=== PATIENT | female | born 1950 | race Caucasian/White ===

== ENCOUNTER 2018-02-09 07:21 | Inpatient (IN) ==
--- NOTE | 2018-02-08 08:34 | Discharge Summary ---
<Naomi Mcleod E - Last Filed: 02/08/18 08:31> Date of Encounter: 02/08/18 - Discharge Diagnosis (1) Status post total hip replacement, right Priority: Primary Status: Acute (2) Arthritis of right hip Priority: Primary Status: Chronic (3) Atrial fibrillation Priority: Secondary Status: Chronic Qualifiers: Atrial fibrillation type: unspecified Qualified Code(s): I48.91 - Unspecified atrial fibrillation (4) senior care current use of anticoagulant Priority: Secondary Status: Chronic (5) HLD (hyperlipidemia) Priority: Secondary Status: Chronic Qualifiers: Hyperlipidemia type: unspecified Qualified Code(s): E78.5 - Hyperlipidemia , unspecified (6) HTN (hypertension) Priority: Secondary Status: Chronic Qualifiers: Hypertension type: unspecified Qualified Code(s): I10 - Essential (primary ) hypertension (7) Asthma Priority: Secondary Status: Chronic Qualifiers: Asthma severity: unspecified severity Asthma persistence: unspecified Asthma complication type: unspecified Qualified Code(s): J45.909 - Unspecified asthma, uncomplicated (8) H/O mechanical aortic valve replacement Priority: Secondary Status: Chronic (9) Obesity Priority: Secondary Status: Chronic Qualifiers: Obesity type: unspecified obesity type Obesity classification: unspecified obesity classification Serious obesity comorbidity presence: unspecified whether serious comorbidity present Qualified Code(s): E66.9 - Obesity, unspecified - Hospital Course Hospital course: Ms. Pena is a 67 year old female - Time Spent with Patient Total time spent providing and/or coordinating discharge services: - Discharge Medications Home Medications: OxyCODONE Immed Rel [Roxicodone 5 MG] 5 mg PO Q6HR PRN 7 Days #28 tablet [Rx] Amiodarone [Cordarone] 200 mg PO DAILY 02/09/18 [History] Atorvastatin [Lipitor] 10 mg PO HS 02/09/18 [History] Citalopram Hydrobromide [Citalopram HBr] 20 mg PO DAILY 02/09/18 [History] Enoxaparin [Lovenox] 40 mg SQ DAILY 02/09/18 [History] Furosemide [Lasix] 40 mg PO BID 02/09/18 [History] HYDROcodone/Acet 5/325 mg [[place] 5-325 mg] 1 tab PO Q6H PRN 02/09/18 [History] Isosorbide MONOnitrate (24 HR) [Imdur] 30 mg PO DAILY 02/09/18 [History] Metoprolol Tartrate 50 mg PO BID 02/09/18 [History] Potassium Chloride [K-Tab ER] 10 meq PO DAILY 02/09/18 [History] Verapamil ER (24 HR) [Calan SR] 240 mg PO DAILY 02/09/18 [History] Warfarin [Coumadin] 1.5 mg PO 1800 02/09/18 [History] Allergies/Adverse Reactions: 3 Allergy/AdvReac Type Severity Reaction Status Date / Time No Known Allergies Allergy Verified 02/09/18 07:49 Primary care physician: Shannon Posadas - Patient Status Disposition: Transfer Inpatient Rehab Fac Condition: Good - Discharge Instructions Instructions: Total Hip Replacement (DC) Follow Up With: Shannon Posadas [Primary Care Provider] - <Darrius Mcgarry - Last Filed: 02/13/18 08:27> Orders not resulted at time of discharge: Pending orders 02/09/18 01:00 XR hip complete RT [XR] Routine Hemoglobin and Hematocrit [HEME] Routine Date of Encounter: 02/13/18 Time of Encounter: 08:27 - Discharge Diagnosis (1) Malunion of fracture of proximal femur Priority: Secondary Status: Chronic Qualifiers: Fracture type: closed Laterality: left Qualified Code(s): S72.002P - Fracture of unspecified part of neck of left femur, subsequent encounter for closed fracture with malunion (2) Obesity (BMI 35.0-39.9 without comorbidity) Priority: Secondary Status: Chronic (3) Status post total hip replacement, right Priority: Primary Status: Acute (4) Arthritis of right hip Priority: Primary Status: Chronic (5) Atrial fibrillation Priority: Secondary Status: Chronic Qualifiers: Atrial fibrillation type: unspecified Qualified Code(s): I48.91 - Unspecified atrial fibrillation (6) senior care current use of anticoagulant Priority: Secondary Status: Chronic (7) HLD (hyperlipidemia) Priority: Secondary Status: Chronic Qualifiers: Hyperlipidemia type: unspecified Qualified Code(s): E78.5 - Hyperlipidemia , unspecified (8) HTN (hypertension) Priority: Secondary Status: Chronic Qualifiers: Hypertension type: unspecified Qualified Code(s): I10 - Essential (primary ) hypertension (9) Asthma Priority: Secondary Status: Chronic Qualifiers: Asthma severity: unspecified severity Asthma persistence: unspecified Asthma complication type: unspecified Qualified Code(s): J45.909 - Unspecified asthma, uncomplicated (10) H/O mechanical aortic valve replacement Priority: Secondary Status: Chronic (11) Anemia requiring transfusions Priority: Primary Status: Acute (12) Symptomatic hypotension Priority: Primary Status: Resolved (13) Acute kidney injury Priority: Primary Status: Resolved - Hospital Course Hospital course: Ms. Pena is a 67 year old female Patient status post total hip replacement. Patient with acute blood loss anemia and acute kidney injury. Patient received transfusion was evaluated by hospitalist on the hospital. They received antibiotics and physical therapy and were discharged in stable condition. There will follow-up in the office in 2 weeks. - Time Spent with Patient Total time spent providing and/or coordinating discharge services: Primary care physician: Shannon Posadas - Patient Status Functional capacity at discharge: uses cane/walker Overall status at discharge: patient is progressing back to baseline
--- NOTE | 2018-02-08 08:36 | Physician Discharge Referral ---
Home Health/Hosp Referral Info Transfer to: Home Health Attending Provider: Dr Mcgarry - Diagnosis (1) Status post total hip replacement, right Priority: Primary Status: Acute (2) Arthritis of right hip Priority: Primary Status: Chronic (3) Atrial fibrillation Priority: Secondary Status: Chronic (4) assisted current use of anticoagulant Priority: Secondary Status: Chronic (5) HLD (hyperlipidemia) Priority: Secondary Status: Chronic (6) HTN (hypertension) Priority: Secondary Status: Chronic (7) Asthma Priority: Secondary Status: Chronic (8) H/O mechanical aortic valve replacement Priority: Secondary Status: Chronic (9) Obesity Priority: Secondary Status: Chronic - Respiratory Orders Smoking Cessation: Smoking cessation has been advised. For more information, call the [employer] Tobacco Quit Line at 1-395-FNGG-NOW. - Dressing/Wound Care Site: right hip Type of Dressing/Treatments w/Frequency: Opsite placed. Keep dressing intact until first follow up appointment. If greater than 50% saturated, notify office, remove dressing and place appropriate dressing back in place. Leave Zipline intact. Opsite dressing is water resistant, not water-proof. OK to shower, but do not get dressing wet. - Diet/Nutrition Diet/Nutrition Orders: Regular - Activity Activity Orders: Up ad gilbert, Ambulate, Chair, Walker Activity: List: Total Hip replacement Precautions Apply cold therapy 3-6x/day for 20 minutes at a time. Encourage ambulation throughout the day and incentive spirometer 10x/hour. Elevate affected extremity as tolerated. Brace: Wear hip abduction pillow when laying/sleeping - Services Needed Following services are medically necessary services: Nursing, Home Health Aide, Physical Therapy, Occupational Therapy - Transfer Medications Prescriptions: OxyCODONE Immed Rel [Roxicodone 5 MG] 5 mg PO Q6HR PRN 7 Days #28 tablet PRN Reason: Severe Pain Home Medications: OxyCODONE Immed Rel [Roxicodone 5 MG] 5 mg PO Q6HR PRN 7 Days #28 tablet [Rx] Allergies/Adverse Reactions: 3 Allergy/AdvReac Type Severity Reaction Status Date / Time No Known Allergies Allergy Verified 01/27/18 14:42 Certification: Further, I certify that my clinical findings support that this patient is homebound (i.e. absences from home require considerable and taxing effort and are for medical reasons or zoroastrian services or infrequently or short duration when for other reasons) because: Homebound Reason: Post-surgery restriction and or conditions limit ability to leave home Attestation: My signature below is to certify that this patient is under my care and that I, or nurse practitioner, or a physician elementary assistant principal working with me, has a face-to- face encounter with this patient.
--- NOTE | 2018-02-09 07:31 | Anesthesia Evaluation PreOp ---
Date of Encounter: 02/09/18 Time of Encounter: 07:26 - Past History Planned Operation: L-Total Hip ARthroplasty Cardiac History: CHF (maintained on Lasix), HTN (mainatained on Imdur, Metoprolol, Lisinopril), Hyperlipidemia (maintained on Atorvastatin), Arrhythmia (Chronic AFib since 06/2017 w/ recent Hx RVR maintained on Metoprolol , Amiodarone, Verapamil and s/p unsuccessful Cardioversion 10/2017. Anticoagulated on Coumadin. Lovenox Bridge BID x 5 days. Last dose 02/08/2018 @ 1800), Cardiac Surgery (Aortic Valve replacement w/ Aortic root & proximal root replacement[Prosthetic Heart Valve] 2007), Other (Stress test 05/2017 WNL. 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: Other (Anxiety/Depression maintained on Citalopram,) Other Medical History: Renal (CRI) Anesthesia History: No Prior Anesthetic Complications, Past Anesthesia (B-TKR 2004, R-Total Hip 2012, KAT, Aortic VAlve/Mechanical Valve replacement 2007, Nikki 1996) Alcohol Use: unknown Drug use: unknown Medications and Allergies OxyCODONE Immed Rel [Roxicodone 5 MG] 5 mg PO Q6HR PRN 7 Days #28 tablet [Rx] Amiodarone [Cordarone] 200 mg PO DAILY 02/09/18 [History] Atorvastatin [Lipitor] 10 mg PO HS 02/09/18 [History] Citalopram Hydrobromide [Citalopram HBr] 20 mg PO DAILY 02/09/18 [History] Enoxaparin [Lovenox] 40 mg SQ DAILY 02/09/18 [History] Furosemide [Lasix] 40 mg PO BID 02/09/18 [History] HYDROcodone/Acet 5/325 mg [[place] 5-325 mg] 1 tab PO Q6H PRN 02/09/18 [History] Isosorbide MONOnitrate (24 HR) [Imdur] 30 mg PO DAILY 02/09/18 [History] Metoprolol Tartrate 50 mg PO BID 02/09/18 [History] Potassium Chloride [K-Tab ER] 10 meq PO DAILY 02/09/18 [History] Verapamil ER (24 HR) [Calan SR] 240 mg PO DAILY 02/09/18 [History] Warfarin [Coumadin] 1.5 mg PO 1800 02/09/18 [History] 3 Allergy/AdvReac Type Severity Reaction Status Date / Time No Known Allergies Allergy Verified 02/09/18 07:49 - Meds/Allergy Pre-op Review Medications Reviewed: Yes Allergies Reviewed: Yes Beta Blockers on Current Med List: Yes (Metoprolol,) If Beta Blockers taken, Date/Time (Last Dose taken): 02/09/2018 @ 0530 Anesthesia Results - Labs Laboratory Tests 01/27/18 01/27/18 01/27/18 15:03 15:03 15:03 WBC 7.8 Hgb 14.6 Hct 44.5 Plt Count 221 PT 38.5 H INR 3.5 APTT 43.9 H Sodium 136 Potassium 5.0 Chloride 105 Carbon Dioxide 26 BUN 28 H Creatinine 1.13 Est GFR (Non-Af Amer) 48 L - Imaging EKG: image reviewed (79bpm AFib) Anesthesia Exam O2 Sat Height 1.8 m Weight 101.605 kg O2 Sat O2 Sat - HEENT Pupil (Motor): Pupils equal, EOMI Mallampati: III Teeth: Edentulous Oral Opening: Greater than 3 - REGISTERED SALES ASSISTANT LOC: Oriented REGISTERED SALES ASSISTANT Motor: Normal RUE, Normal LUE, Normal RLE, Normal LLE, Normal Face REGISTERED SALES ASSISTANT Sensory: Normal: RUE, LUE, RLE, LLE, Face - Cardiac Rhythm: Irregular Murmur: Systolic JVD: No - Pulmonary Breath Sounds: bilateral Clear Respiratory Effort: Symmetrical Anesthesia Assess/Plan ASA Score: 3 (Obesity, ASthma, Chronic AFib, HTN, Chol, Anxiety/depression) Modified [place] Scale for Level of Consciousness: Cooperative, oriented, and tranquil Anesthetic Plan: Regional Autologous Blood: Yes Monitoring Plan: Standard Monitors Recovery Plan: PACU Anes Supervising Prov Stmt: Pt seen/evaluated, R&B Discussed, questions answered and consent obtained. Eden Hernandez MD
[2018-02-09] MEDS ORDERED: Ethanol\\Acetic Acid\\Na Ace\\Ben 1,000 ML IRRIG.SOLN IR ONE (07:34)
[2018-02-09] MEDS ORDERED: CeFAZolin Syr 2,000MG/20 ML 2,000 MG/20 ML SYRINGE IVPB ONE (07:42)
[2018-02-09] MEDS ORDERED: Ringers Solution, Lactated 1,000 ML IVC SCH ×2 (07:45→13:05)
[2018-02-09] MEDS ORDERED: Albuterol 2.5 MG/3 ML NEBULIZER IH ONE (07:53)
[2018-02-09] MEDS ORDERED: Albuterol 2.5 MG/3 ML NEBULIZER ONE (07:54)
--- NOTE | 2018-02-09 08:08 | History & Physical Report ---
Date of Encounter: 02/09/18 Time of Encounter: 08:07 24 Hour HP Update - Instructions Instructions: If the History and Physical is less than 30 days old and was completed prior to A.M. admission and or procedure and has NOT been updated on calendar day of procedure please complete this update prior to performing procedure. - Update Patient reports changes in Medical Condition: No Changes in examination, assessment, or condition: No Changes in Medication: No Preop tests/diagnostics Reviewed: Yes Surgery Remains Indicated: Yes Consent for Planned Operative Procedure(s) Verified: Yes - Pre-Operative Checklist Preoperative Checklist Indicated: No Prophylactic Antibiotic Ordered: Yes Is VTE Prophylaxis Indicated?: Yes
[2018-02-09] MEDS ORDERED: *HR* Propofol 200 MG/20 ML VIAL IVP ONE (08:14)
[2018-02-09] MEDS ORDERED: Ondansetron 4 MG/2 ML VIAL IVP PRN ×2 (08:14→13:05)
[2018-02-09] MEDS ORDERED: *HR* Succinylcholine 200 MG/10 ML VIAL IVP ONE (08:14)
[2018-02-09] MEDS ORDERED: Dexamethasone 4 MG/ML VIAL ONE (08:14)
[2018-02-09] MEDS ORDERED: Naloxone 0.4 MG/ML INJ IVP PRN ×2 (08:14→13:05)
[2018-02-09] MEDS ORDERED: *HR* Midazolam HCl 2 MG/2 ML VIAL ONE (08:14)
[2018-02-09] MEDS ORDERED: *HR* OxyCODONE/APAP 5/325 TABLET PO PRN (08:14)
[2018-02-09] MEDS ORDERED: *HR* OxyCODONE Oral Soln 5 MG/5 ML UD.LIQ PO PRN (08:14)
[2018-02-09] MEDS ORDERED: Ibuprofen 400 MG TABLET PO PRN (08:14)
[2018-02-09] MEDS ORDERED: *HR* FentaNYL (PF) 100 MCG/2 ML VIAL ONE (08:14)
[2018-02-09] MEDS ORDERED: *HR* OxyCODONE Immed Rel 5 MG TABLET PO PRN ×2 (08:14→11:27)
[2018-02-09] MEDS ORDERED: Ondansetron 4 MG/2 ML VIAL ONE (08:14)
[2018-02-09] MEDS ORDERED: Morphine Sulfate/PF 5mg/10mL Vial ONE (08:21)
[2018-02-09] MEDS ORDERED: ROPIVACAINE HCL/PF 0.5% 30 ML VIAL ONE (08:21)
[2018-02-09] MEDS ORDERED: Acetaminophen IV 1,000 MG/100 ML INFUS..BTL IVPB ONE (08:22)
--- NOTE | 2018-02-09 09:40 | Anesthesia Procedures ---
Date of Encounter: 02/09/18 Time of Encounter: 09:15 Procedures: Anesthesia - Nerve Block Procedure Date: 02/09/18 Time: 09:15 Allergies/Adv Reactions: NKA Pre-op Diagnosis: Left hip arthritis Surgical Procedure: Left total hip arthroplasty Checklist: Correct Patient Identifier, Correct procedure, History checked Correct side: Left Blood Thinner: Yes (Coumadin last 5 days ago, lovonox 40mg last 15hrs ago) Monitor Applied: EKG, BP, Pulse Oximetry Supplemental Oxygen via Nasal Cannula (L/min): 2 Sedation: Versed (mg): 2 Sedation: Fentanyl (mcg): 100 Indication: Post Op Analgesia Pre-op Neuro Deficits: No Block Type: Other (Fascia Iliaca left) Catheter placed: No Sterile Technique: Yes Ultrasound used: Yes Anatomy identified: Yes Visual spread of Local: Yes Neuro Stimulation: No Blood on Needle Aspiration: No Smooth Injection of Local: Yes Pain with Injection of Local: No Prep: Chlorhexadine Needle: 22 x 50 mm Stimuplex Local: Ropivacaine Volume (cc): 0.2 % 70ml Number of Attempts: 1 Complications: None/effective block Vitals: Vital Signs Temperature 98.4 F 02/09/18 08:29 Pulse Rate 68 02/09/18 08:29 Respiratory Rate 18 02/09/18 08:29 Blood Pressure 115/74 02/09/18 08:29 O2 Sat by Pulse Oximetry 98 02/09/18 08:29 Temperature 98.4 F 02/09/18 08:29 Pulse Rate 73 02/09/18 09:05 Respiratory Rate 18 02/09/18 09:05 Blood Pressure 155/97 02/09/18 09:05 O2 Sat by Pulse Oximetry 96 02/09/18 09:05
[2018-02-09] MEDS ORDERED: Lidocaine -MPF 2% 2 ML VIAL ONE ×2 (09:53→11:33)
[2018-02-09] MEDS ORDERED: EPHEDrine 50 MG/ML VIAL ONE (10:01)
[2018-02-09] MEDS ORDERED: *HR* PHENYLEPHRINE 1,000 MCG/10 ML SYRINGE IVP ONE (10:03)
[2018-02-09] MEDS ORDERED: *HR* Rocuronium Bromide 50 MG/5 ML VIAL ONE (10:04)
[2018-02-09 10:14] LABS: INR 1.4; Prothrombin Time 15.1 Seconds (9.4-12.1)
[2018-02-09] MEDS ORDERED: Neostigmine Methylsulfate 3 MG/3 ML SYRINGE ONE (11:22)
[2018-02-09] MEDS ORDERED: *HR* Labetalol 20 MG/4 ML SYRINGE IVP PRN (11:27)
--- NOTE | 2018-02-09 11:31 | Orthopedic Operative Note ---
Date of procedure: 02/09/18 Pre-op diagnosis: Left hip arthritis left proximal femoral malunion Post-op diagnosis: same Procedure: Procedure: Left Total Hip Replacment robotic-assisted Estimated blood loss: 500 cc Hardware: Metal and polyethylene replacement. Radha DM Cup: 52 cup yarsanism stem 15 x 1 95, 21 body +20 Head: head +4 with Tara Procedural Notes: Grade 4 arthritic changes femoral head acetabular socket, procedure performed with robotic assistance. With proximal femoral malunion Operative procedure: The patient was brought to the operating room and placed on the operating room table. After general anesthesia was administered the patient was placed in the lateral decubitus position with the operative leg up. All pressure points were padded appropriately and the head was stabilized in the neutral position. The operative extremity was prepped and draped in the sterile surgical fashion patient received IV antibiotic prior to skin incision. 3 Steinmann pins were placed in the iliac crest 3 cm proximal to the anterior superior iliac spine this was for the robotic-assisted sensor. This was done through a small 2 cm incision. A standard posterior approach is made to the operative hip, the incision was made through the skin and subcutaneous tissue hemostasis was obtained with Bovie cautery. Using careful sharp dissection the fascia was identified and incised exposing the external rotators. The femoral checkpoint was placed leg length was measured at this time utilizing robotic assistance. The external rotators were released off the greater trochanter and tagged with # 2 FiberWire suture. The capsule was T'd open and the hip was brought into internal rotation. Patient noted to have grade 4 arthritic changes femoral head. The femoral neck cut was made at the appropriate level roughly Xmm proximal to the lesser trochanter aced on preoperative templating. An anterior capsulotomy was performed for the anterior retractor. Soft tissues removed from the acetabulum. Patient noted to have grade 4 arthritic changes acetabulum. The acetabulum checkpoint was placed confirmed. The acetabulum was then mapped with robotic assistance. Based on the preoperative plan the acetabulum was reamed in one step with a 51 reamer. The 52 acetabulum was impacted with robotic assistance and 45 degrees of abduction and 20 degrees of anteversion. The hip was brought back in to internal rotation and prepared with the box finisher followed by the canal finder followed by the reaming process to a size 11 /12 broaching process in 20 degrees anteversion. It was broached up to the appropriate size 12. Patient noted to have protrusion of the distal portion of the stem through the lateral cortex. Decision at this point was made to revise to revision stem. This was a preoperative concern and his intraoperative film was obtained. The patient was reamed distally with intermittent x-ray evaluation to confirm placement of the 15 x 195 stem. Trial reduction after reaming proximally with a 20 x 21 body revealed grade stability with a +4 head. Trial was removed real head was seated and secured. With the appropriate poly -. Trial reduction revealed leg lengths close to normal. The hip had excellent stability with forward flexion to 90 degrees adduction of 30 degrees and internal rotation of 60 degrees. The hip had no shuck. The hips after 2 minutes with a antibacterial solution. It was irrigated out with 2 L of pulse irrigation. The checkpoints were removed, Steinmann pins were removed. The hip was closed by the PA. The deep tissue was irrigated and closed deep with #1 PDS suture superficially with 0 PDS suture and skin was closed with skin thalia and zip tie. The patient was placed in a sterile dressing and abduction pillow. The patient was extubated and transferred to the recovery room in stable condition. Anesthesia: GETA Surgeon: Darrius Mcgarry Was there an retail store assistant present: No Estimated blood loss (cc): 500 Condition: stable Disposition: PACU
[2018-02-09] MEDS: MORPHINE SUL Oral CONC 10 MG/0.5 ML ORAL.SYG SL PRN ×3 (12:28→12:48)
[2018-02-09 12:45] LABS: Hematocrit 36.2 % (35.3-44.9); Hemoglobin 11.9 g/dL (11.5-15.4)
--- NOTE | 2018-02-09 12:57 | Anesthesia Evaluation Post Op ---
Date of Encounter: 02/09/18 Time of Encounter: 12:56 - Vital Signs Vital Signs: Vital Signs/O2 Sat/Glucose, Most Recent Temp Pulse Resp BP Pulse Ox 97.8 F 76 16 96/68 99 02/09/18 12:36 02/09/18 12:46 02/09/18 12:46 02/09/18 12:46 02/09/18 12:46 Blood Glucose* 136 - Lungs Lungs: Clear Ascult./Percussion - Airway Airway: Non-obstructed - Cardiovascular Regular Rate - Mental Status Mental Status: Alert & Oriented, Answers Appropriately - Pain Pain Scale: 0 Pain Scale used: Numeric (1 - 10) - Nausea Vomiting Nausea Vomiting: Not Present - Hydration Hydration: Tolerates oral liquids - Discharge PostOp Status: Transfer Patient to floor
[2018-02-09] MEDS ORDERED: traMADol 50 MG TABLET PO PRN (13:05)
[2018-02-09] MEDS ORDERED: MOM Conc 10 ML UD.LIQ PO PRN (13:05)
[2018-02-09] MEDS ORDERED: Sennosides 8.6 MG TABLET PO PRN (13:05)
[2018-02-09] MEDS ORDERED: Temazepam 15 MG CAPSULE PO PRN (13:05)
[2018-02-09] MEDS ORDERED: 0.9 % Sodium Chloride 500 ML IVC ONE (14:38)
[2018-02-09] MEDS: Isosorbide MONOnitrate (24 HR) 30 MG TAB.ER.24H PO SCH (14:42)
[2018-02-09] MEDS: Furosemide 40 MG TABLET PO SCH ×2 (14:43→20:37)
[2018-02-09] MEDS: Verapamil ER (24 HR) 240 MG TABLET.ER PO SCH (14:43)
[2018-02-09] MEDS: Acetaminophen IV 1,000 MG/100 ML INFUS..BTL IVPB PRN (15:46)
[2018-02-09] MEDS: ceFAZolin 2,000 MG in 0.9 % Sodium Chloride 100 ML IVPB SCH ×2 (15:47→23:57)
[2018-02-09] MEDS: *HR* Amiodarone 200 MG TABLET PO SCH (15:51)
[2018-02-09] MEDS: Multivit/Ca/Min/Fe/FA 1 TAB TABLET PO SCH (15:52)
[2018-02-09] MEDS: Ascorbic Acid 500 MG TABLET PO SCH (15:52)
[2018-02-09] MEDS: *HR* Enoxaparin 30 MG/0.3 ML SYRINGE SQ SCH (16:21)
[2018-02-09] MEDS: *HR* Warfarin 1 MG TABLET PO SCH (16:21)
[2018-02-09] MEDS ORDERED: *HR* Enoxaparin 30 MG/0.3 ML SYRINGE SQ SCH (18:00)
[2018-02-09] MEDS ORDERED: Dextrose Gel 15 GM/37.5 ML TUBE PO PRN ×2 (19:24)
[2018-02-09] MEDS ORDERED: *HR* Dextrose 50 % in Water (Syg) 50 ML SYRINGE IVP PRN (19:24)
[2018-02-09] MEDS ORDERED: D5% in Water 1,000 ML IVC PRN (19:24)
[2018-02-09] MEDS ORDERED: Insulin LISPRO 300 UNITS/3 ML VIAL SQ SCH (21:00)
[2018-02-10 02:11] LABS: Hematocrit 32.9 % (35.3-44.9)
[2018-02-10 02:12] LABS: Hemoglobin 10.2 g/dL (11.5-15.4)
[2018-02-10 02:19] LABS: INR 1.3; Prothrombin Time 14.2 Seconds (9.4-12.1)
[2018-02-10 02:29] LABS: Calcium 8.1 mg/dL (8.6-10.3); Potassium 6.5 mEq/L (3.5-5.1)
[2018-02-10] MEDS: *HR* Enoxaparin 30 MG/0.3 ML SYRINGE SQ SCH (05:54)
--- NOTE | 2018-02-10 06:22 | Orthopedics Progress Note ---
Date of Encounter: 02/10/18 Time of Encounter: 06:22 - Assessment and Plan (1) Malunion of fracture of proximal femur Current Visit: Yes Status: Chronic Qualifiers: Fracture type: closed Laterality: left Qualified Code(s): S72.002P - Fracture of unspecified part of neck of left femur, subsequent encounter for closed fracture with malunion (2) Obesity (BMI 35.0-39.9 without comorbidity) Current Visit: Yes Status: Chronic (3) Status post total hip replacement, right Current Visit: No Status: Acute (4) Arthritis of right hip Current Visit: No Status: Chronic (5) Atrial fibrillation Current Visit: No Status: Chronic Qualifiers: Atrial fibrillation type: unspecified Qualified Code(s): I48.91 - Unspecified atrial fibrillation (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 Current Visit: No Status: Chronic (7) HLD (hyperlipidemia) Current Visit: No Status: Chronic Qualifiers: Hyperlipidemia type: unspecified Qualified Code(s): E78.5 - Hyperlipidemia , unspecified (8) HTN (hypertension) Current Visit: No Status: Chronic Qualifiers: Hypertension type: unspecified Qualified Code(s): I10 - Essential (primary ) hypertension (9) Asthma Current Visit: No Status: Chronic Qualifiers: Asthma severity: unspecified severity Asthma persistence: unspecified Asthma complication type: unspecified Qualified Code(s): J45.909 - Unspecified asthma, uncomplicated (10) H/O mechanical aortic valve replacement Current Visit: No Status: Chronic Subjective Interval history: Patient was seen this morning doing well without complaints. Afebrile vital signs stable. Operative extremity: Neurovascularly intact Dressing clean dry and intact Calves nontender Assessment and plan: Continue with postoperative care Patient with elevated potassium Kayexalate given we will consult nephrology history of kidney disease Objective Vital signs: Vital Signs Temp Pulse Resp BP Pulse Ox 02/10/18 02:51 97.6 F 90 16 91/58 95 02/10/18 00:01 97.7 F 61 16 91/61 94 02/09/18 21:38 92/53 02/09/18 20:12 98.7 F 86 18 95 02/09/18 15:44 87 14 115/75 100 02/09/18 14:54 97.4 F L 82 17 127/76 97 02/09/18 14:47 97.2 F L 16 16 85/58 100 02/09/18 14:06 97.2 F L 80 14 74/51 100 02/09/18 13:20 97.4 F L 74 16 82/63 93 02/09/18 12:56 97.6 F 72 14 96/69 99 02/09/18 12:46 76 16 96/68 99 02/09/18 12:36 97.8 F 73 16 92/62 99 02/09/18 12:26 67 16 96/64 100 02/09/18 12:16 80 16 122/62 95 02/09/18 12:06 97.1 F L 84 16 104/59 97 02/09/18 09:05 73 18 155/97 96 02/09/18 08:32 18 115/74 98 02/09/18 08:29 98.4 F 68 18 115/74 98 Intake and Output 02/09/18 02/09/18 02/10/18 15:59 23:59 07:59 Intake Total 300 / 300 100 / 100 Output Total 500 / 500 30 / 30 375 / 375 Balance -500 / -500 270 / 270 -275 / -275 Intake: IV Fluids 200 / 200 100 / 100 Ofirmev 1,000 mg/100 ml 1,000 100 / 100 mg In 100 ml @ 400 mls/hr IVPB Q8H PRN Rx#:[id number] Ancef 2,000 MG In 0.9 % Sodium 100 / 100 100 / 100 Chloride 100 ML @ 200 mls/hr IVPB Q8HR SUSIE Rx#:[id number] Oral 100 / 100 Output: Urine 30 / 30 Estimated Blood Loss 500 / 500 Straight Cath 375 / 375 Other: Weight 101.605 kg Blood Glucose* 136 229 - Labs CBC & BMP: 02/10/18 01:41 02/10/18 03:06 Labs: Abnormal lab results Hgb 10.2 g/dL (11.5-15.4) L D 02/10/18 01:41 Hct 32.9 % (35.3-44.9) L 02/10/18 01:41 PT 14.2 Seconds (9.4-12.1) H 02/10/18 01:41 Sodium 134 mEq/L (136-145) L 02/10/18 01:41 Potassium 6.7 mEq/L (3.5-5.1) H* 02/10/18 03:06 Carbon Dioxide 22 mEq/L (23-29) L 02/10/18 01:41 BUN 32 mg/dL (8-23) H 02/10/18 01:41 Creatinine 1.56 mg/dL (0.60-1.20) H 02/10/18 01:41 Est GFR ( Amer) 40 (> 60) L 02/10/18 01:41 Est GFR (Non-Af Amer) 33 (> 60) L 02/10/18 01:41 Glucose 175 mg/dL (70-105) H 02/10/18 01:41 POC Glucose 229 mg/dL (70-99) H 02/09/18 20:42 Calcium 8.1 mg/dL (8.6-10.3) L 02/10/18 01:41 - VTE Documentation of Mechanical Device: Venous foot pump, device Consult Discharge Plan - Plan Referrals: Shannon Posadas [Primary Care Provider] -
[2018-02-10 06:50] LABS: Potassium 6.3 mEq/L (3.5-5.1)
[2018-02-10] MEDS: Furosemide 40 MG TABLET PO SCH (07:10)
[2018-02-10] MEDS: Isosorbide MONOnitrate (24 HR) 30 MG TAB.ER.24H PO SCH (07:10)
[2018-02-10] MEDS: Verapamil ER (24 HR) 240 MG TABLET.ER PO SCH (07:11)
[2018-02-10] MEDS: Ascorbic Acid 500 MG TABLET PO SCH ×2 (08:09→17:14)
[2018-02-10] MEDS: *HR* Amiodarone 200 MG TABLET PO SCH (08:10)
[2018-02-10] MEDS: Multivit/Ca/Min/Fe/FA 1 TAB TABLET PO SCH (08:10)
[2018-02-10] MEDS: Insulin LISPRO 300 UNITS/3 ML VIAL SQ SCH ×2 (08:11→11:18)
[2018-02-10] MEDS: Acetaminophen IV 1,000 MG/100 ML INFUS..BTL IVPB PRN ×2 (10:05→22:17)
[2018-02-10] MEDS ORDERED: 0.9 % Sodium Chloride 250 ML IVC ONE ×3 (11:53→16:31)
[2018-02-10] MEDS ORDERED: 0.9 % Sodium Chloride 1,000 ML IVC SCH (12:00)
--- NOTE | 2018-02-10 13:04 | Nephrology Consult Note ---
Date of Encounter: 02/10/18 Time of Encounter: 12:00 Assessment and Plan (1) MALLORY (acute kidney injury) Status: Ruled-out Elevated SCr in the setting of perioperative hypotension likely due to hypoperfusion Will bolus with NS 250cc x2 now and start IVF at 60cc/hr afterwards Will send urine studies No acute indication for EMERGENCY MEDICINE PHYSICIAN at this time Avoid nephrotoxins at this time (2) Hyperkalemia Status: Resolved s/p kayexalate with no BM, will re-dose with 60grams now Renal diet advised Potassium supplements already discontinued History of Present Illness - Reason for Consult Consult date: 02/10/18 Acute Kidney Injury Requesting physician: Naomi Mcleod - History of Present Illness 67 y o female with PMH of HTN and mechanical aortic heart valve a/p L hip surgery yesterday complicated by hypotension yesterday along with urinary retention and today with elevated SCr of 1.56, GFR 33 and hyperkalemia up to 6.7. Previous SCr noted at 1.13, GFR 48. She denied any history of renal disease. No NSAIDs use. BP noted as low as 70/50s with redcued UOP per pt. Kayexalate given at 45gram but yet no BM. Past Med Surg Social Fam HX - Past Medical History Medical history: asthma, atrial fibrillation, hypertension Psychiatric history: no psych history - Social History Smoking Status: Former smoker Smokeless Tobacco Status: No Alcohol use: none Drug use: unknown Medications and Allergies OxyCODONE Immed Rel [Roxicodone 5 MG] 5 mg PO Q6HR PRN 7 Days #28 tablet [Rx] Amiodarone [Cordarone] 200 mg PO DAILY 02/09/18 [History] Atorvastatin [Lipitor] 10 mg PO HS 02/09/18 [History] Citalopram Hydrobromide [Citalopram HBr] 20 mg PO DAILY 02/09/18 [History] Enoxaparin [Lovenox] 40 mg SQ DAILY 02/09/18 [History] Furosemide [Lasix] 40 mg PO BID 02/09/18 [History] HYDROcodone/Acet 5/325 mg [[place]ws 5-325 mg] 1 tab PO Q6H PRN 02/09/18 [History] Isosorbide MONOnitrate (24 HR) [Imdur] 30 mg PO DAILY 02/09/18 [History] Metoprolol Tartrate 50 mg PO BID 02/09/18 [History] Potassium Chloride [K-Tab ER] 10 meq PO DAILY 02/09/18 [History] Verapamil ER (24 HR) [Calan SR] 240 mg PO DAILY 02/09/18 [History] Warfarin [Coumadin] 1.5 mg PO 1800 02/09/18 [History] 3 Allergy/AdvReac Type Severity Reaction Status Date / Time No Known Allergies Allergy Verified 02/09/18 07:49 Review of Systems All Systems: reviewed and no additional remarkable complaints except as stated Exam - Vital Signs Vital signs: Initial Vital Signs Temp Pulse Resp BP Pulse Ox 98.4 F 68 18 115/74 98 02/09/18 08:29 02/09/18 08:29 02/09/18 08:29 02/09/18 08:29 02/09/18 08:29 Vital Signs - Last 8 Hours Temp Pulse Resp BP Pulse Ox 02/10/18 10:51 97.9 F 104 18 67/40 93 02/10/18 09:55 102 79/37 94 02/10/18 09:30 99 65/37 91 02/10/18 09:15 103 59/38 95 02/10/18 06:42 98.4 F 69 18 85/59 95 Intake and Output 02/09/18 02/10/18 02/10/18 23:59 07:59 15:59 Intake Total 300 / 300 100 / 100 710 / 710 Output Total 30 / 30 375 / 375 Balance 270 / 270 -275 / -275 710 / 710 Intake: IV Fluids 200 / 200 100 / 100 350 / 350 0.9 % Sodium Chloride 250 ML @ 250 / 250 937.5 mls/hr IVC .Q16M ONE Rx#: [id number] Ofirmev 1,000 mg/100 ml 1,000 100 / 100 100 / 100 mg In 100 ml @ 400 mls/hr IVPB Q8H PRN Rx#:[id number] Ancef 2,000 MG In 0.9 % Sodium 100 / 100 100 / 100 Chloride 100 ML @ 200 mls/hr IVPB Q8HR SUSIE Rx#:[id number] Oral 100 / 100 360 / 360 Output: Urine 30 / 30 Straight Cath 375 / 375 Other: Meal Breakfast Percent of Meal Consumed 50% Blood Glucose* 229 190 169 - General Appearance General appearance: appears started age (in mild distress due to pain) EENT: ATNC, mucous membranes dry Neck: no JVD, supple Respiratory: clear (ant bilat) Cardiology: no edema (leg with dressing), normal S1, normal S2 Gastrointestinal: no tenderness, no guarding Integumentary: warm and dry Neurologic: no focal deficit Musculoskeletal: no deformities Psychiatric: cooperative Results - Lab Results 02/12/18 01:01 02/12/18 01:01 Most recent lab results Calcium 8.1 mg/dL (8.6-10.3) L 02/10/18 01:41 Consult Discharge Plan - Plan Instructions: Total Hip Replacement (DC) Referrals: Shannon Posadas [Primary Care Provider] -
[2018-02-10 13:22] LABS: Uric Acid 7.2 mg/dL (2.3-7.6)
[2018-02-10 14:42] LABS: Bilirubin,Urine Negative (Negative); Blood,Urine Negative (Negative); Clarity,Urine Cloudy (Clear); Color,Urine Yellow (Yellow); Glucose,Urine (UA) Normal (Normal); Ketones,Urine Trace mg/dL (Negative); Leukocyte Esterase,Urine Moderate (Negative); Nitrite,Urine Negative (Negative); Protein,Urine Negative (Neg-Trace); Specific Gravity,Urine > 1.030 (1.010-1.025); Urobilinogen,Urine Normal (Normal)
[2018-02-10 14:44] LABS: Bacteria,Urine None Seen per hpf (None-Few); Hyaline Casts,Urine Few per lpf (None-Few); RBC,Urine 0-3 per hpf (0-3); Squamous Epithelial Cell,Urine Many per lpf (None-Few); WBC,Urine 30-50 per hpf (0-3)
[2018-02-10 16:22] LABS: Hematocrit 24.3 % (35.3-44.9)
[2018-02-10 16:26] LABS: Hemoglobin 8.2 g/dL (11.5-15.4)
[2018-02-10] MEDS: *HR* Warfarin 1 MG TABLET PO SCH (17:14)
[2018-02-10] MEDS ORDERED: *HR* Enoxaparin 100 MG/ML SYRINGE SQ SCH (18:00)
[2018-02-10] MEDS: Levalbuterol Neb 1.25 MG/3 ML IH SCH (22:03)
[2018-02-10] MEDS ORDERED: 0.9 % Sodium Chloride 250 ML ONE (22:09)
--- NOTE | 2018-02-10 23:32 | Internal Medicine Consult Note ---
Date of Encounter: 02/10/18 Time of Encounter: 17:07 - Assessment and plan (1) Symptomatic hypotension Current Visit: Yes Status: Acute Assessment and plan: Likely multifactorial due to anemia and Afib. Received 500 ml total NS boluses today. Give additional 250 ml NS bolus. Continue to monitor vitals closely. Strict bedrest. Transfuse as per below. Already improving as of this evening. Holding metoprolol and amiodarone, which she takes for AFib. HR subsequently went up to 140s this PM, so gave PM metoprolol dose. I suspect maintaining good cardiac output with rate control will improve hypotension overall. Consider resuming Afib medications in AM as BP seems to be improving, and should continue to improve post transfusion. (2) Anemia requiring transfusions Current Visit: Yes Status: Acute Assessment and plan: Hgb = 8.2 this afternoon, down from 11.9 upon admission pre-surgery. No signs of bleeding. May be causing near-syncope and hypotension. Was on lovenox bridge to coumadin for Afib; will hold due to suspected bleeding. Will give 2 units PRBC. Recheck 2 hours post-transfusion H/H and repeat H/H in AM. Check hemoccult. (3) Atrial fibrillation Current Visit: Yes Status: Chronic Assessment and plan: Treatment as per above. Qualifiers: Atrial fibrillation type: unspecified Qualified Code(s): I48.91 - Unspecified atrial fibrillation (4) Acute kidney injury Current Visit: Yes Status: Acute Assessment and plan: Management per nephrology. (5) Hyperkalemia Current Visit: Yes Status: Acute Assessment and plan: Management per nephrology. (6) Status post total hip replacement, right Current Visit: Yes Status: Acute Assessment and plan: Management per primary. (7) Asthma Current Visit: Yes Status: Chronic Assessment and plan: Continue home medications. Qualifiers: Asthma severity: unspecified severity Asthma persistence: unspecified Asthma complication type: unspecified Qualified Code(s): J45.909 - Unspecified asthma, uncomplicated (8) H/O mechanical aortic valve replacement Current Visit: Yes Status: Chronic Assessment and plan: Continue home medications. (9) HLD (hyperlipidemia) Current Visit: Yes Status: Chronic Assessment and plan: Continue home medications. Qualifiers: Hyperlipidemia type: unspecified Qualified Code(s): E78.5 - Hyperlipidemia , unspecified (10) HTN (hypertension) Current Visit: Yes Status: Chronic Assessment and plan: Holding anti-hypertensives except Afib medications as per above. Qualifiers: Hypertension type: unspecified Qualified Code(s): I10 - Essential (primary ) hypertension (11) Obesity Current Visit: Yes Status: Chronic Assessment and plan: Counselled on lifestyle modifications. Qualifiers: Obesity type: unspecified obesity type Obesity classification: unspecified obesity classification Serious obesity comorbidity presence: unspecified whether serious comorbidity present Qualified Code(s): E66.9 - Obesity, unspecified - Time Spent With Patient Total time spent is greater than 50% in coordination of care (as documented) at patient's floor/unit and/or counseling patient: 25 - 35 minutes Internal Medicine - CN: HPI - Data of Consult Consult date: 02/10/18 Requesting Physician: Darrius Mcgarry MD - Consult Narrative Reason for consult: Hypotension History of present illness: Ms. Pena is a 67 year old female admitted for left hip arthritis. She is POD # 0 s/p left hip replacement. Patient tolerated procedure well per orthopedic surgeon. During PT evaluation this AM, patient developed dizziness, lightheadedness, and hypotension. Dizziness and lightheadedness resolved after sitting back down. Hypotension has persisted, however. She has had systolic 70 -90s readings throughout this afternoon. Nephrology was consulted today for MALLORY and hyperkalemia. They ordered 2 x 250 ml boluses. She has CHF history and there is a concern for fluid overload. BP only improved minimally after these boluses. She has no signs or symptoms of fluid overload at this time. I was consulted to evaluate patient for hypotension. Hgb post-procedure was 10.2 , down from admission Hgb of 11.9. During my interview, she has no complaints. She has received kayexelate this AM for hyperkalemia, but still has not had a bowel movement. She denies chest pain or SOB. She has history of AFib, but denies palpitations. Heart monitor shows Afib with HR 90-100s. She has no other complaints. Past Med Surg Social Fam HX - Past Medical History Attestation: Yes The following information was validated with the patient. Source: patient Medical history: asthma, atrial fibrillation, hypertension Psychiatric history: no psych history - Past Surgical History Surgical History: hip replacement (Left) - Social History Smoking Status: Former smoker Smokeless Tobacco Status: No Alcohol use: none Drug use: unknown - Additional Family History Additional family history: No family history per patient. - Constitutional Constitutional: no anorexia, no chills, no fatigue, no fever(s), no lethargy, no malaise, no weakness, no weight gain, no weight loss - EENT Eyes: no blurry vision, no diplopia, no discharge, no loss of vision, no pain Ears: no decreased hearing, no ear pain Nose, mouth and throat: no dysphagia, no mouth pain, no nasal congestion, no nasal discharge, no neck pain, no sinus pain, no sore throat - Cardiovascular Cardiovascular ROS IM: lightheadedness, syncope, no chest pain, no diaphoresis, no dyspnea, no edema, no palpitations - Respiratory Respiratory: no cough, no dyspnea, no hemoptysis, no wheezing - Gastrointestinal Gastrointestinal: no abdominal pain, no change in bowel habits, no constipation , no diarrhea, no dysphagia, no heartburn, no hematemesis, no hematochezia, no melena, no nausea, no vomiting - Genitourinary Genitourinary: no difficulty urinating, no dysuria, no hematuria, no urinary frequency - Musculoskeletal Musculoskeletal ROS IM: arthralgias, limited range of motion, no muscle weakness - Integumentary Integumentary IM: no erythema, no rash, no skin ulcer, no jaundice - Neurological Neurological ROS: dizziness, no confusion, no headache(s), no vertigo, no weakness - Psychiatric Psychiatric: no anxiety, no confusion, no depression - Endocrine Endocrine IM: no cold intolerance, no fatigue, no heat intolerance, no polydipsia, no polyphagia, no polyuria Internal Medicine - CN: Meds OxyCODONE Immed Rel [Roxicodone 5 MG] 5 mg PO Q6HR PRN 7 Days #28 tablet [Rx] Amiodarone [Cordarone] 200 mg PO DAILY 02/09/18 [History] Atorvastatin [Lipitor] 10 mg PO HS 02/09/18 [History] Citalopram Hydrobromide [Citalopram HBr] 20 mg PO DAILY 02/09/18 [History] Enoxaparin [Lovenox] 40 mg SQ DAILY 02/09/18 [History] Furosemide [Lasix] 40 mg PO BID 02/09/18 [History] HYDROcodone/Acet 5/325 mg [[place]is 5-325 mg] 1 tab PO Q6H PRN 02/09/18 [History] Isosorbide MONOnitrate (24 HR) [Imdur] 30 mg PO DAILY 02/09/18 [History] Metoprolol Tartrate 50 mg PO BID 02/09/18 [History] Potassium Chloride [K-Tab ER] 10 meq PO DAILY 02/09/18 [History] Verapamil ER (24 HR) [Calan SR] 240 mg PO DAILY 02/09/18 [History] Warfarin [Coumadin] 1.5 mg PO 1800 02/09/18 [History] 3 Allergy/AdvReac Type Severity Reaction Status Date / Time No Known Allergies Allergy Verified 02/09/18 07:49 Internal Medicine - CN: Exam - Constitutional Vitals: Temp Pulse Resp BP Pulse Ox 98.6 F 111 18 106/71 94 02/10/18 22:58 02/10/18 22:58 02/10/18 22:58 02/10/18 22:58 02/10/18 22:58 General appearance IM: Present: cooperative, A&O X 3, morbidly obese, pleasant, no acute distress, answers questions appropriately - Head Head exam: Present: atraumatic, normocephalic - Eye Eye exam: Present: EOMI, PERRL. Absent: nystagmus, scleral icterus - ENT ENT exam: Present: mucous membranes moist, normal external ear exam, normal oropharynx - Neck Neck exam general surgery: Present: supple, trachea midline. Absent: lymphadenopathy, tenderness, thyromegaly - Respiratory Respiratory exam: Present: CTAB. Absent: accessory muscle use, rales, rhonchi, wheezes Additional comments: Normal WOB - Cardiovascular Cardiovascular exam IM: Absent: diastolic murmur, gallop, rubs, systolic murmur Additional comments: Irregularly irregular rhythm, tachycardic, no BLE edema - GI/Abdominal GI/Abdominal exam IM: Present: normal bowel sounds, soft. Absent: distended, hepatomegaly, mass, splenomegaly, tenderness - Extremities Exam Extremities exam IM: Present: normal capillary refill. Absent: cyanotic, pedal edema Additional comments: Decreased ROM and TTP right hip, unable to fully evaluate right hip due to in foam and bandaging - Neurological Exam Neurological exam: Present: alert, CN II-XII intact, oriented X3, no focal deficits, strengths equal and symetr throughout. Absent: facial droop, speech deficit - Psychiatric Psychiatric exam: Present: normal affect, normal mood. Absent: anxious, depressed - Skin Skin exam IM: Present: dry, intact, warm. Absent: cyanosis, rash Internal Medicine - CN: Reslt - Labs CBC & Chem 7: 02/11/18 07:34 02/11/18 07:34 Labs: Short CBC 02/10/18 02/10/18 Range/Units 01:41 15:58 Hgb 10.2 L D 8.2 L D (11.5-15.4) g/dL Hct 32.9 L 24.3 L (35.3-44.9) % BMP 02/10/18 02/10/18 02/10/18 01:41 03:06 06:19 Sodium 134 L Potassium 6.5 H* 6.7 H* 6.3 H Chloride 101 Carbon Dioxide 22 L BUN 32 H Creatinine 1.56 H Glucose 175 H Calcium 8.1 L Cardiac Enzymes 02/10/18 Range/Units 18:50 Troponin I < 0.03 (< 0.04) ng/mL Urine 02/10/18 Range/Units 12:12 Urine Color Yellow (Yellow) Urine Clarity Cloudy A (Clear) Urine pH 5.0 (5.0-8.0) pH Units Ur Specific [place] > 1.030 H (1.010-1.025) Urine Protein Negative (Neg-Trace) mg/dL Urine Glucose (UA) Normal (Normal) mg/dL - ABG Interpretation ABG results: PT/INR, D-dimer PT 14.2 Seconds (9.4-12.1) H 02/10/18 01:41 Consult Discharge Plan - Plan Referrals: Shannon Posadas [Primary Care Provider] -
--- NOTE | 2018-02-11 00:43 | Event Note ---
Date of Encounter: 02/11/18 Time of Encounter: 00:30 Called by RN that pt has positive FOBT resulted. Review chart pt has one episode hypotension, with drop of H/H. Pt is on blood thinner, need to r/o GI bleed. Will start iv PPI q12hr, hold coumadin and lovenox, change to clear liquid diet now, and consult GI. Pt is already on blood transfusion ordered earlier today. She is also on EPCD for DVT prophylaxis.
[2018-02-11] MEDS: Pantoprazole 40 MG VIAL IVP SCH ×3 (01:49→17:48)
[2018-02-11] MEDS ORDERED: 0.9 % Sodium Chloride 250 ML ONE (02:46)
[2018-02-11] MEDS: Levalbuterol Neb 1.25 MG/3 ML IH SCH ×4 (04:40→21:48)
[2018-02-11 07:58] LABS: INR 2.3; Prothrombin Time 25.2 Seconds (9.4-12.1)
[2018-02-11 08:04] LABS: Hematocrit 31.5 % (35.3-44.9)
--- NOTE | 2018-02-11 08:08 | Orthopedics Progress Note ---
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 Qualifiers: Fracture type: closed Laterality: left Qualified Code(s): S72.002P - Fracture of unspecified part of neck of left femur, subsequent encounter for closed fracture with malunion (2) Obesity (BMI 35.0-39.9 without comorbidity) Current Visit: Yes Status: Chronic (3) Status post total hip replacement, right Current Visit: Yes Status: Acute (4) Arthritis of right hip Current Visit: No Status: Chronic (5) Atrial fibrillation Current Visit: Yes Status: Chronic Qualifiers: Atrial fibrillation type: unspecified Qualified Code(s): I48.91 - Unspecified atrial fibrillation (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 Current Visit: No Status: Chronic (7) HLD (hyperlipidemia) Current Visit: Yes Status: Chronic Qualifiers: Hyperlipidemia type: unspecified Qualified Code(s): E78.5 - Hyperlipidemia , unspecified (8) HTN (hypertension) Current Visit: Yes Status: Chronic Qualifiers: Hypertension type: unspecified Qualified Code(s): I10 - Essential (primary ) hypertension (9) Asthma Current Visit: Yes Status: Chronic Qualifiers: Asthma severity: unspecified severity Asthma persistence: unspecified Asthma complication type: unspecified Qualified Code(s): J45.909 - Unspecified asthma, uncomplicated (10) H/O mechanical aortic valve replacement Current Visit: Yes Status: Chronic (11) Anemia requiring transfusions Current Visit: Yes Status: Acute (12) Symptomatic hypotension Current Visit: Yes Status: Acute (13) Acute kidney injury Current Visit: Yes Status: Acute Subjective Interval history: Patient was seen this morning doing well without complaints. Afebrile vital signs stable. Operative extremity: Neurovascularly intact Dressing clean dry and intact Calves nontender Assessment and plan: Continue with postoperative care Nephrology consult hospitalist consult appreciated. Objective Vital signs: Vital Signs Temp Pulse Resp BP Pulse Ox 02/11/18 06:44 98.4 F 118 16 95/68 95 02/11/18 06:34 98.6 F 111 18 83/58 95 02/11/18 04:40 17 95 02/11/18 03:07 98.2 F 110 16 117/76 95 02/11/18 02:52 98.0 F 111 16 107/70 96 02/11/18 02:25 98.5 F 106 16 94/57 95 02/10/18 22:58 98.6 F 111 18 106/71 94 02/10/18 22:43 98.6 F 16 77/52 02/10/18 19:48 98.5 F 117 16 108/73 96 02/10/18 18:02 130 110/72 97 02/10/18 14:43 98.3 F 108 18 76/54 94 02/10/18 10:51 97.9 F 104 18 67/40 93 02/10/18 09:55 102 79/37 94 02/10/18 09:30 99 65/37 91 02/10/18 09:15 103 59/38 95 Intake and Output 02/10/18 02/11/18 02/11/18 23:59 07:59 15:59 Intake Total 340 / 340 667 / 667 Output Total 250 / 250 750 / 750 Balance 90 / 90 -83 / -83 Intake: IV Fluids 100 / 100 Ofirmev 1,000 mg/100 ml 1,000 100 / 100 mg In 100 ml @ 400 mls/hr IVPB Q8H PRN Rx#:[id number] Oral 240 / 240 Blood Product 0 / 0 667 / 667 Rbcs Leuko Poor As-1 Unit 330 / 330 [id number] Rbcs Leuko Poor As-1 Unit 0 / 0 337 / 337 [id number] Output: Catheter 250 / 250 750 / 750 Other: Meal Dinner Percent of Meal Consumed 75% Blood Glucose* 194 - Labs CBC & BMP: 02/10/18 15:58 02/10/18 06:19 Labs: Abnormal lab results Hgb 8.2 g/dL (11.5-15.4) L D 02/10/18 15:58 Hct 24.3 % (35.3-44.9) L 02/10/18 15:58 PT 25.2 Seconds (9.4-12.1) H D 02/11/18 07:34 Sodium 134 mEq/L (136-145) L 02/10/18 01:41 Potassium 6.3 mEq/L (3.5-5.1) H 02/10/18 06:19 Carbon Dioxide 22 mEq/L (23-29) L 02/10/18 01:41 BUN 32 mg/dL (8-23) H 02/10/18 01:41 Creatinine 1.56 mg/dL (0.60-1.20) H 02/10/18 01:41 Est GFR ( Amer) 40 (> 60) L 02/10/18 01:41 Est GFR (Non-Af Amer) 33 (> 60) L 02/10/18 01:41 Glucose 175 mg/dL (70-105) H 02/10/18 01:41 POC Glucose 194 mg/dL (70-99) H 02/10/18 16:05 Calcium 8.1 mg/dL (8.6-10.3) L 02/10/18 01:41 Creatine Kinase 357 Units/L (30-223) H 02/10/18 06:19 Urine Clarity Cloudy (Clear) A 02/10/18 12:12 Ur Specific [place] > 1.030 (1.010-1.025) H 02/10/18 12:12 Urine Ketones Trace mg/dL (Negative) H 02/10/18 12:12 Ur Leukocyte Esterase Moderate (Negative) H 02/10/18 12:12 Urine Microscopic WBC 30-50 per hpf (0-3) H 02/10/18 12:12 Ur Squamous Epith Cells Many per lpf (None-Few) H 02/10/18 12:12 Ur Culture Indicated? NO. (NO) A 02/10/18 12:12 Stool Occult Blood Positive (Negative) A 02/10/18 22:35 - VTE Documentation of Mechanical Device: Venous foot pump, device Consult Discharge Plan - Plan Referrals: Shannon Posadas [Primary Care Provider] -
[2018-02-11 08:11] LABS: Hemoglobin 10.5 g/dL (11.5-15.4)
[2018-02-11 09:00] LABS: Calcium 7.8 mg/dL (8.6-10.3); Potassium 4.3 mEq/L (3.5-5.1)
[2018-02-11] MEDS: Verapamil ER (24 HR) 240 MG TABLET.ER PO SCH (09:09)
[2018-02-11] MEDS: Isosorbide MONOnitrate (24 HR) 30 MG TAB.ER.24H PO SCH (09:09)
[2018-02-11] MEDS: 0.9 % Sodium Chloride 250 ML IVC SCH (09:12)
[2018-02-11] MEDS: *HR* Amiodarone 200 MG TABLET PO SCH (09:14)
[2018-02-11] MEDS: Ascorbic Acid 500 MG TABLET PO SCH ×2 (09:14→17:49)
[2018-02-11] MEDS: Multivit/Ca/Min/Fe/FA 1 TAB TABLET PO SCH (09:14)
[2018-02-11] MEDS: Acetaminophen IV 1,000 MG/100 ML INFUS..BTL IVPB PRN (11:01)
--- NOTE | 2018-02-11 14:13 | Internal Med Progress Note ---
Date of Encounter: 02/11/18 Time of Encounter: 14:12 - Assessment and plan (1) Anemia requiring transfusions Current Visit: Yes Status: Acute Assessment and plan: Hgb 10.5 today. GI consulted. Patient received 2 units PRBC yesterday. At this time, it appears her low Hgb is most likely related to postoperative anemia. Stool positive for occult blood. Patient reports a history of internal hemorrhoids. Refusing endoscopy at this time. We will resume Coumadin at this time given her history of mechanical valve replacement. Will stop lovenox. Monitor blood counts closely. Continue Protonix. Moderate risk for complications. (2) Status post total hip replacement, right Current Visit: Yes Status: Acute Assessment and plan: Pain is well controlled. Continue physical therapy. Awaiting placement per physical therapy evaluation. (3) Atrial fibrillation Current Visit: Yes Status: Chronic Assessment and plan: Heart rate is elevated this morning. Resume amiodarone. Continue metoprolol. Blood pressure is much better now. Will monitor with telemetry. His heart rate remains elevated, will start her on Cardizem. Qualifiers: Qualified Code(s): I48.91 - Unspecified atrial fibrillation (4) HLD (hyperlipidemia) Current Visit: Yes Status: Chronic Assessment and plan: Continue Lipitor Qualifiers: Qualified Code(s): E78.5 - Hyperlipidemia, unspecified (5) HTN (hypertension) Current Visit: Yes Status: Chronic Assessment and plan: Blood pressure is improved. Resume metoprolol. Qualifiers: Qualified Code(s): I10 - Essential (primary) hypertension (6) Asthma Current Visit: Yes Status: Chronic Assessment and plan: Not in acute exacerbation. Continue bronchodilators as needed Qualifiers: Qualified Code(s): J45.909 - Unspecified asthma, uncomplicated (7) H/O mechanical aortic valve replacement Current Visit: Yes Status: Chronic Assessment and plan: Resume coumadin. (8) Obesity Current Visit: Yes Status: Chronic Qualifiers: Qualified Code(s): E66.9 - Obesity, unspecified (9) Hyperkalemia Current Visit: Yes Status: Acute Assessment and plan: Now resolved (10) Symptomatic hypotension Current Visit: Yes Status: Acute Assessment and plan: Resolved (11) Acute kidney injury Current Visit: Yes Status: Acute Assessment and plan: Resolved - Time Spent With Patient Total time spent is greater than 50% in coordination of care (as documented) at patient's floor/unit and/or counseling patient: - Subjective Interval history: Patient is sitting up in chair. Just worked with physical therapy. Doing well overall. Denies any hematemesis or melena. No chest pain or shortness of breath. Having good urine output. - Constitutional Vitals: Temp Pulse Resp BP Pulse Ox 98.6 F 130 18 137/95 94 02/11/18 11:12 02/11/18 12:21 02/11/18 11:12 02/11/18 11:12 02/11/18 11:12 General appearance: Present: A&O X 3, pleasant, no acute distress, answers questions appropriately - Neck Neck exam general surgery: Present: supple, trachea midline. Absent: lymphadenopathy - Respiratory Respiratory exam: Present: CTAB. Absent: accessory muscle use, rales, rhonchi, wheezes - Cardiovascular Cardiovascular exam: Present: RRR, +S1, +S2. Absent: diastolic murmur, gallop, rubs, systolic murmur - GI/Abdominal GI/Abdominal exam: Present: normal bowel sounds, soft, tenderness (right hip), no peritoneal signs. Absent: distended - Extremities Exam Extremities exam: Present: warm, radial pulses palpable and symmetrical. Absent : calf tenderness, cyanotic, pedal edema - Neurological Exam Neurological exam: Present: CN II-XII intact, oriented X3, no focal deficits. Absent: facial droop, speech deficit - Skin Skin exam: Present: dry, intact Internal Medicine: Result - Labs CBC & Chem 7: 02/11/18 07:34 02/11/18 07:34 Labs: Short CBC 02/10/18 02/11/18 Range/Units 15:58 07:34 Hgb 8.2 L D 10.5 L D (11.5-15.4) g/dL Hct 24.3 L 31.5 L (35.3-44.9) % BMP 02/11/18 07:34 Sodium 139 Potassium 4.3 Chloride 107 Carbon Dioxide 25 BUN 32 H Creatinine 1.17 Glucose 141 H Calcium 7.8 L Cardiac Enzymes 02/10/18 Range/Units 18:50 Troponin I < 0.03 (< 0.04) ng/mL Urine 02/10/18 Range/Units 12:12 Urine Color Yellow (Yellow) Urine Clarity Cloudy A (Clear) Urine pH 5.0 (5.0-8.0) pH Units Ur Specific [place] > 1.030 H (1.010-1.025) Urine Protein Negative (Neg-Trace) mg/dL Urine Glucose (UA) Normal (Normal) mg/dL - ABG Interpretation ABG results: PT/INR, D-dimer PT 25.2 Seconds (9.4-12.1) H D 02/11/18 07:34 - VTE Documentation of Mechanical Device: Venous foot pump, device Consult Discharge Plan - Plan Referrals: Shannon Posadas [Primary Care Provider] -
--- NOTE | 2018-02-11 17:53 | Gastroenterology Consult Note ---
<Carrol Shannon M - Last Filed: 02/11/18 17:50> Date of Encounter: 02/11/18 Time of Encounter: 13:00 - Assessment and plan (1) Anemia Status: Acute Assessment and plan: Pt has positive FOB test and anemia following left hip surgery. She is on coumadin for a-fib. Labs are improved following transfusion. May be postop anemia. Will order left hip ultrasound to rule out hematoma. Discussed with pt and she is refusing EGD/colonoscopy. Advised that she will need scopes if anemia is persistant and she verbalizes understanding. Will order iron studies. Qualifiers: Anemia type: iron deficiency Iron deficiency anemia type: unspecified iron deficiency Qualified Code(s): D50.9 - Iron deficiency anemia, unspecified - Time Spent With Patient Total time spent is greater than 50% in coordination of care (as documented) at patient's floor/unit and/or counseling patient: GI History of Present Illness - Data of Consult Patient: new to practice Consult date: 02/11/18 Requesting Physician: Darrius Mcgarry MD - Consult Narrative Reason for consult: anemia History of present illness: Ms Pena is a 67 year old female with a past medical history of asthma, atrial fibrillation, hypertension, and mechanical valve replacement. She is status post hip replacement surgery. She developed anemia postoperatively. She has been transfused. She denies any abdominal pain. GERD, nausea, vomiting, diarrhea , constipation, bloody or tarry stools. Hemoglobin was 11.9 on admission dropped 8.2 he was transfused 2 units is 10.5 morning INR is 2.3 sodium 139 potassium 4.3 BUN 25 creatinine 1.17 glucose 141Stool is positive for occult blood. Colonoscopy: 3 years ago in [place] EGD: denies NSAIDS/ASA: Anticoagulants: lovenox last dose 02/10, coumadin last dose 02/10 Past Med Surg Social Fam HX - Past Medical History Medical history: asthma, atrial fibrillation, hypertension Psychiatric history: no psych history - Past Surgical History Surgical History: hip replacement (Left) - Social History Smoking Status: Former smoker Smokeless Tobacco Status: No Alcohol use: none Drug use: unknown Review of Systems: GI: as per [facility] GENERAL: denies fever, has some chills EYES: denies yellow discoloration ENT: denies pain with swallowing or difficulty swallowing CARDIO: denies chest pain, palpitations RESP: Shortness of breath with exertion : denies change in color of urine NEURO: denies any weakness HEME: Denies any bruising MS: joint pain, DERM: denies rash or itching PSYCH: Denies history of anxiety or depression - Constitutional Vitals: Temp Pulse Resp BP Pulse Ox 98.6 F 130 18 137/95 94 02/11/18 11:12 02/11/18 12:21 02/11/18 15:58 02/11/18 11:12 02/11/18 15:58 Exam: CONSTITUTIONAL:~alert, no acute distress.~HEAD:~normocephalic.~EYES:~no jaundice.~NECK:~no obvious swelling.~HEART:~irregular rate and rhythm, no murmurs.~LUNGS:~bilateral good air entry.~ABDOMEN:~non distended, soft, non tander, no masses pulpable, no organomegaly.~RECTAL EXAM:~Deferred.~EXTREMITIES: ~no clubbing, cyanosis, left hip dressing dry and intact, bruising and edema noted to left hip, 2+ left lower extremity edema noted~SKIN:~mild pallor noted, no stigmata of chronic liver disease.~NEUROLOGIC:~no obvious focal defect.~~~~ Results - Labs CBC & Chem 7: 02/11/18 07:34 02/11/18 07:34 Labs: Last Result Calcium 7.8 mg/dL (8.6-10.3) L 02/11/18 07:34 Troponin I < 0.03 ng/mL (< 0.04) 02/10/18 18:50 Stool Occult Blood Positive (Negative) A 02/10/18 22:35 Entire Visit Hgb 10.5 g/dL (11.5-15.4) L D 02/11/18 07:34 Hct 31.5 % (35.3-44.9) L 02/11/18 07:34 PT 25.2 Seconds (9.4-12.1) H D 02/11/18 07:34 - ABG ABG results: PT/INR, D-dimer PT 25.2 Seconds (9.4-12.1) H D 02/11/18 07:34 Consult Discharge Plan - Plan Instructions: Total Hip Replacement (DC) Referrals: Shannon Posadas [Primary Care Provider] - <Teto Zuluaga - Last Filed: 02/18/18 05:51> Date of Encounter: 02/11/18 - Time Spent With Patient Total time spent is greater than 50% in coordination of care (as documented) at patient's floor/unit and/or counseling patient: GI History of Present Illness - Data of Consult Requesting Physician: Darrius Mcgarry MD - Consult Narrative History of present illness: Ms. Pena is a 67 year old female - Constitutional Vitals: Temp Pulse Resp BP Pulse Ox 97.5 F L 94 18 131/82 96 02/13/18 10:13 02/13/18 10:13 02/13/18 10:13 02/13/18 10:13 02/13/18 10:13 Results - Labs CBC & Chem 7: 02/12/18 01:01 02/12/18 01:01 Labs: Last Result Calcium 8.0 mg/dL (8.6-10.3) L 02/12/18 01:01 Iron 27 mcg/dL (50-170) L 02/11/18 18:37 % Saturation 10 % (15-50) L 02/11/18 18:37 Transferrin 201 mg/dL (203-362) L 02/11/18 18:37 Troponin I < 0.03 ng/mL (< 0.04) 02/10/18 18:50 Stool Occult Blood Positive (Negative) A 02/10/18 22:35 Entire Visit Hgb 10.0 g/dL (11.5-15.4) L 02/12/18 01:01 Hct 28.9 % (35.3-44.9) L 02/12/18 01:01 PT 19.3 Seconds (9.4-12.1) H 02/13/18 05:05 - ABG ABG results: PT/INR, D-dimer PT 19.3 Seconds (9.4-12.1) H 02/13/18 05:05 - Attending Attestation Recommend checking an ultrasound left hip given the anticoagulation, anemia and recent left hip surgery. Patient refused endoscopy. Plan conservative management given patient's sentiment. I have personally performed a face to face evaluation on this patient. I have reviewed and agree with the care plan. History and Exam by me shows:
[2018-02-11] MEDS ORDERED: Warfarin perPT PO PRN (18:00)
[2018-02-11 19:01] LABS: % Iron Saturation 10 % (15-50); Iron 27 mcg/dL (50-170); Transferrin 201 mg/dL (203-362)
--- NOTE | 2018-02-11 22:56 | Nephrology Progress Note ---
Date of Encounter: 02/11/18 Time of Encounter: 12:00 - Assessment and Plan (1) MALLORY (acute kidney injury) Status: Ruled-out SCR normalized at 1.17, GFR >60 after volume repletion Continue to avoid nephrotoxins if possible UOP noted at 725cc in the past 24hrs but already exceeding today UA and sodium consistent with volume depletion urine eosinophil negative CPK slightly elevated and uric acid WNL (2) Hyperkalemia Status: Resolved resolved (3) Anemia Status: Acute hgb improved at 10.5 after transfusion pRBCs Qualifiers: Anemia type: iron deficiency Iron deficiency anemia type: unspecified iron deficiency Qualified Code(s): D50.9 - Iron deficiency anemia, unspecified Subjective Interval history: Pt seen and examined feeling better today Objective - Vital Signs Vital signs: Vital Signs Temp Pulse Resp BP Pulse Ox 02/11/18 21:48 17 96 02/11/18 20:26 99.0 F 105 16 110/71 97 02/11/18 18:31 98.8 F 114 16 96/57 95 02/11/18 15:58 18 94 02/11/18 12:21 130 02/11/18 11:12 98.6 F 124 18 137/95 94 02/11/18 10:53 16 95 02/11/18 09:28 98.6 F 83 112/76 02/11/18 06:44 98.4 F 118 16 95/68 95 02/11/18 06:34 98.6 F 111 18 83/58 95 02/11/18 04:40 17 95 02/11/18 03:07 98.2 F 110 16 117/76 95 02/11/18 02:52 98.0 F 111 16 107/70 96 02/11/18 02:25 98.5 F 106 16 94/57 95 02/10/18 22:58 98.6 F 111 18 106/71 94 Intake and Output 02/11/18 02/11/18 02/11/18 07:59 15:59 23:59 Intake Total 667 / 667 460 / 460 100 / 100 Output Total 750 / 750 1300 / 1300 650 / 650 Balance -83 / -83 -840 / -840 -550 / -550 Intake: IV Fluids 100 / 100 Ofirmev 1,000 mg/100 ml 1,000 100 / 100 mg In 100 ml @ 400 mls/hr IVPB Q8H PRN Rx#:[id number] Oral 360 / 360 100 / 100 Blood Product 667 / 667 Rbcs Leuko Poor As-1 Unit 330 / 330 [id number] Rbcs Leuko Poor As-1 Unit 337 / 337 [id number] Output: Urine 0 / 0 Catheter 750 / 750 1300 / 1300 650 / 650 Urethral (Alexander) 900 / 900 Other: Meal Lunch Dinner Percent of Meal Consumed 75% 50% Stool Size Large Stool Consistency formed Stool Characteristics Normal for Patient Stool Color Brown # Bowel Movements 1 - General Appearance General appearance: Present: well-developed, well-nourished EENT: Present: ATNC, mucous membranes moist Neck: Present: no JVD, supple Respiratory: Present: clear Cardiology: Present: no edema, normal S1, normal S2 Gastrointestinal: Present: no tenderness, no guarding Integumentary: Present: warm and dry Neurologic: Present: no focal deficit Musculoskeletal: Present: no deformities Psychiatric: Present: mood/affect appropriate, cooperative - Lab 02/12/18 01:01 02/12/18 01:01 Most recent lab results Calcium 7.8 mg/dL (8.6-10.3) L 02/11/18 07:34 Urine Creatinine 167 mg/dL 02/10/18 12:12 Urine Sodium 14.6 mEq/L 02/10/18 12:12 - VTE Documentation of Mechanical Device: Venous foot pump, device Consult Discharge Plan - Plan Instructions: Total Hip Replacement (DC) Referrals: Shannon Posadas [Primary Care Provider] -
[2018-02-12 01:24] LABS: Basophils % 0.1 %; Eosinophils # 0.1 K/mcL (0.0-0.6); Hematocrit 28.9 % (35.3-44.9); Immature Granulocytes % 0.7 % (0-4); Lymphocytes % 10.8 %; Mean Corpuscular HGB Conc 34.6 g/dL (31.6-35.5); Mean Corpuscular Hemoglobin 32.1 pg (28.0-33.3); Mean Corpuscular Volume 92.6 fL (83.0-100.0); Mean Platelet Volume 10.3 fL (9.4-12.4); Monocytes # 1.1 K/mcL (0.0-1.3); Monocytes % 11.3 %; Neutrophils # 7.3 K/mcL (1.6-8.9); Nucleated Red Blood Cells 0.2 /100 WBC (0); Platelet Count 126 K/mcL (140-400); Red Blood Count 3.12 M/mcL (3.82-4.97); Segmented Neutrophils % 76.1 %
[2018-02-12 01:30] LABS: INR 2.2; Prothrombin Time 23.6 Seconds (9.4-12.1)
[2018-02-12] MEDS: *HR* OxyCODONE Immed Rel 5 MG TABLET PO PRN ×3 (01:39→15:03)
[2018-02-12 01:40] LABS: BUN/Creatinine Ratio 28 (6-26); Blood Urea Nitrogen 21 mg/dL (8-23); Carbon Dioxide 25 mEq/L (23-29); Chloride 109 mEq/L (98-107); Glucose 139 mg/dL (70-105); Osmolality,Calculated 295 (280-300); Potassium 3.7 mEq/L (3.5-5.1); Sodium 140 mEq/L (136-145); eGFR For African Americans > 60 (> 60); eGFR For Non-African Americans > 60 (> 60)
[2018-02-12] MEDS: Levalbuterol Neb 1.25 MG/3 ML IH SCH ×4 (03:29→22:30)
[2018-02-12] MEDS: Pantoprazole 40 MG VIAL IVP SCH ×2 (06:14→16:58)
[2018-02-12] MEDS: 0.9 % Sodium Chloride 250 ML IVC SCH ×2 (06:34→06:36)
--- NOTE | 2018-02-12 07:54 | Event Note ---
Date of Encounter: 02/10/18 Time of Encounter: 11:45 Delayed entry PCR- POD#1 R THR robotic 02/08/18 Zeferino PCR - Patient seen at bedside. She admits to being somewhat short of breath - admits to h/o asthma - O2 via NC. She states she overall is having a hard time with pain. Labwork and medications reviewed. Continues to be hypotensive Pain control: Adequate Participating in PT - though limited secondary to hypotension, persistent despite patient in reclined position with minimal activity. All questions and concerns addressed. Educated on use of incentive spirometer, ambulation, and hydration. Patient educated on post-operative restrictions and care. Addressed: Hypotension and hyperkalemia - Discussed with Dr. Dolly Sy earlier today - Dr. Alberto available on floor at time of rounding. Will consult hospitalist for evaluation and further management of hypotension D/C plan: unknown at this time - will reevaluate once more medically stable.
--- NOTE | 2018-02-12 07:54 | Event Note ---
Date of Encounter: 02/11/18 Time of Encounter: 12:30 Delayed entry PCR- POD#2 R THR robotic 02/08/18 Zeferino PCR - Patient seen at bedside. Improvement overall - O2 via NC maintained. She states she overall is feeling much better. Spouse at bedside. Labwork and medications reviewed. Hypotension resolved Pain control: Adequate Participating in PT. All questions and concerns addressed. Educated on use of incentive spirometer, ambulation, and hydration. Patient educated on post-operative restrictions and care. Addressed: Hypotension and hyperkalemia - Hospitalist and Nephrology teams on board. Appreciate their recommendations and evaluations. D/C plan: ECF - once medically stable
--- NOTE | 2018-02-12 07:58 | Physician Discharge Referral ---
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 (5) HLD (hyperlipidemia) Priority: Secondary Status: Chronic (6) HTN (hypertension) Priority: Secondary Status: Chronic (7) Asthma Priority: Secondary Status: Chronic (8) H/O mechanical aortic valve replacement Priority: Secondary Status: Chronic (9) Obesity Priority: Secondary Status: Chronic (10) Anemia Priority: Secondary Status: Acute Expected Duration of Placement: less than 30 days Prognosis: Good Aware of Diagnosis: Patient Aware of Prognosis: Patient - Transfer Medications Home Medications: OxyCODONE Immed Rel [Roxicodone 5 MG] 5 mg PO Q6HR PRN 7 Days #28 tablet [Rx] Amiodarone [Cordarone] 200 mg PO DAILY 02/09/18 [History] Atorvastatin [Lipitor] 10 mg PO HS 02/09/18 [History] Citalopram Hydrobromide [Citalopram HBr] 20 mg PO DAILY 02/09/18 [History] Enoxaparin [Lovenox] 40 mg SQ DAILY 02/09/18 [History] Furosemide [Lasix] 40 mg PO BID 02/09/18 [History] HYDROcodone/Acet 5/325 mg [[place] 5-325 mg] 1 tab PO Q6H PRN 02/09/18 [History] Isosorbide MONOnitrate (24 HR) [Imdur] 30 mg PO DAILY 02/09/18 [History] Metoprolol Tartrate 50 mg PO BID 02/09/18 [History] Potassium Chloride [K-Tab ER] 10 meq PO DAILY 02/09/18 [History] Verapamil ER (24 HR) [[place] SR] 240 mg PO DAILY 02/09/18 [History] Warfarin [Coumadin] 1.5 mg PO 1800 02/09/18 [History] Allergies/Adverse Reactions: 3 Allergy/AdvReac Type Severity Reaction Status Date / Time No Known Allergies Allergy Verified 02/09/18 07:49 - Respiratory Orders Smoking Cessation: Smoking cessation has been advised. For more information, call the [place] Tobacco Quit Line at 2-835-ULBA-NOW. - Lab Orders Lab Orders: CBC (Recheck H/H for anemia once per week x 2 weeks - Report results to ABRODOLFO), Other (include drug levels w/frequency) (PT/INR for Coumadin managment) - Ancillary Orders May use pressure relief devices daily prn, May go on AV w/family/respon alliance party w /meds at nurse discretion PRN, May consult with Dentist, Manual Writer, Mobile Practice Lead PRN - Mobility Orders Chair, Ambulate - Rehabiliation Orders Rehab Potential: Good Rehab Orders: Evaluation for Physical Therapy, Evaluation for Occupational Therapy Other: Total Hip replacement Precautions Apply cold therapy 3-6x/day for 20 minutes at a time. Encourage ambulation throughout the day and incentive spirometer 10x/hour. Elevate affected extremity as tolerated. Brace: Wear hip abduction pillow when laying/sleeping - Treatments Skin tear care topically daily PRN per policy List/Other: Opsite placed. Keep dressing intact until first follow up appointment. If greater than 50% saturated, notify office, remove dressing and place appropriate dressing back in place. Leave Zipline/Jairo intact. Opsite dressing is water resistant, not water-proof. OK to shower, but do not get dressing wet. - Diet Orders Regular CERTIFICATION: I certify that the transfer of the above named patient to an Extended Care Facility is necessary for the continuing treatment of the diagnosis listed. The above information is true and accurate reflection of patient's current condition. Confidential - Redisclosure prohibited without a patient's written consent.
[2018-02-12] MEDS: Verapamil ER (24 HR) 240 MG TABLET.ER PO SCH (08:52)
[2018-02-12] MEDS: Ascorbic Acid 500 MG TABLET PO SCH ×2 (08:52→16:58)
[2018-02-12] MEDS: *HR* Amiodarone 200 MG TABLET PO SCH (08:52)
[2018-02-12] MEDS: Isosorbide MONOnitrate (24 HR) 30 MG TAB.ER.24H PO SCH (08:53)
[2018-02-12] MEDS: Multivit/Ca/Min/Fe/FA 1 TAB TABLET PO SCH (08:54)
[2018-02-12] MEDS ORDERED: Furosemide 40 MG/4 ML VIAL IVP ONE (09:00)
[2018-02-12] MEDS: Furosemide 40 MG TABLET PO SCH ×2 (09:05→16:58)
--- NOTE | 2018-02-12 11:50 | Internal Med Progress Note ---
Date of Encounter: 02/12/18 Time of Encounter: 09:00 - Assessment and plan (1) Anemia requiring transfusions Current Visit: Yes Status: Acute Assessment and plan: Hemoglobin is stable. Continue Coumadin. Outpatient follow-up with GI (2) Status post total hip replacement, right Current Visit: Yes Status: Acute Assessment and plan: Awaiting placement to skilled rehabilitation. Pain is well controlled. Continue PTOT (3) Atrial fibrillation Current Visit: Yes Status: Chronic Assessment and plan: Heart rate improved. Continue amiodarone, metoprolol and verapamil Qualifiers: Atrial fibrillation type: unspecified Qualified Code(s): I48.91 - Unspecified atrial fibrillation (4) HLD (hyperlipidemia) Current Visit: Yes Status: Chronic Assessment and plan: Continue atorvastatin Qualifiers: Hyperlipidemia type: unspecified Qualified Code(s): E78.5 - Hyperlipidemia , unspecified (5) HTN (hypertension) Current Visit: Yes Status: Chronic Assessment and plan: Blood pressure is well controlled Qualifiers: Hypertension type: unspecified Qualified Code(s): I10 - Essential (primary ) hypertension (6) Asthma Current Visit: Yes Status: Chronic Assessment and plan: Not in acute exacerbation Qualifiers: Asthma severity: unspecified severity Asthma persistence: unspecified Asthma complication type: unspecified Qualified Code(s): J45.909 - Unspecified asthma, uncomplicated (7) H/O mechanical aortic valve replacement Current Visit: Yes Status: Chronic Assessment and plan: Continue Coumadin. INR is 2.2 today (8) Obesity Current Visit: Yes Status: Chronic Qualifiers: Obesity type: unspecified obesity type Obesity classification: unspecified obesity classification Serious obesity comorbidity presence: unspecified whether serious comorbidity present Qualified Code(s): E66.9 - Obesity, unspecified (9) Hyperkalemia Current Visit: Yes Status: Resolved (10) Symptomatic hypotension Current Visit: Yes Status: Resolved Assessment and plan: Resolved (11) Acute kidney injury Current Visit: Yes Status: Resolved Assessment and plan: Will resume Lasix as patient is developing pedal edema. We will give 1 dose IV and then transitioned to oral dose. From my standpoint, patient is stable to be discharged at this time. She will need to follow up with GI as outpatient for further workup if she has persistent anemia. - Time Spent With Patient Total time spent is greater than 50% in coordination of care (as documented) at patient's floor/unit and/or counseling patient: - Subjective Interval history: Patient is awake and alert. Sitting up in chair. Complaints of increased swelling in her extremities. She has not received Lasix due to acute kidney injury. Otherwise pain is well controlled. No chest pain. No hematemesis or melena. - Constitutional Vitals: Temp Pulse Resp BP Pulse Ox 98.6 F 109 15 102/69 95 02/12/18 10:50 02/12/18 10:50 02/12/18 11:14 02/12/18 10:50 02/12/18 11:14 General appearance: Present: cooperative, A&O X 3, morbidly obese, pleasant, no acute distress, answers questions appropriately - Respiratory Respiratory exam: Present: CTAB. Absent: accessory muscle use, rales, rhonchi, wheezes - Cardiovascular Cardiovascular exam: Present: RRR, +S1, +S2, systolic murmur - GI/Abdominal GI/Abdominal exam: Present: normal bowel sounds, soft, no peritoneal signs. Absent: distended, tenderness - Extremities Exam Extremities exam: Present: pedal edema, warm, radial pulses palpable and symmetrical. Absent: calf tenderness, cyanotic - Neurological Exam Neurological exam: Present: CN II-XII intact, oriented X3, no focal deficits. Absent: facial droop, speech deficit Internal Medicine: Result - Labs CBC & Chem 7: 02/12/18 01:01 02/12/18 01:01 Labs: Short CBC 02/12/18 Range/Units 01:01 WBC 9.6 (4.3-11.1) K/mcL Hgb 10.0 L (11.5-15.4) g/dL Hct 28.9 L (35.3-44.9) % Plt Count 126 L (140-400) K/mcL Neutrophils # 7.3 (1.6-8.9) K/mcL BMP 02/12/18 01:01 Sodium 140 Potassium 3.7 Chloride 109 H Carbon Dioxide 25 BUN 21 Creatinine 0.74 Glucose 139 H Calcium 8.0 L - ABG Interpretation ABG results: PT/INR, D-dimer PT 23.6 Seconds (9.4-12.1) H 02/12/18 01:01 - Impressions Impressions Extremity Ultrasound 02/11/18 16:09 IMPRESSION: No sonographic evidence for hematoma. D/ / Stanford Vera MD / Stanford Vera MD Interpreting Provider: Stanford Vera MD - VTE Documentation of Mechanical Device: Venous foot pump, device Consult Discharge Plan - Plan Referrals: Shannon Posadas [Primary Care Provider] -
[2018-02-12] MEDS: *HR* OxyCODONE/APAP 5/325 TABLET PO PRN ×2 (12:07→20:29)
--- NOTE | 2018-02-12 12:17 | Orthopedics Progress Note ---
Date of Encounter: 02/12/18 Time of Encounter: 08:00 - Assessment and Plan (1) Status post total hip replacement, right Current Visit: Yes Status: Acute Patient was seen this morning, doing well without complaints. Alexander catheter in place. Afebrile, vital signs stable. Operative extremity: Neurovascularly intact Dressing clean dry and intact, no saturation. Jairo in place. Calf nontender Assessment and plan: Continue with postoperative care, patient plan to go ECF once authorized and cleared from medical team Hematocrit 28.9 Hgb 10 - asymptomatic Subjective Principal diagnosis: Left THR - 02/10/18 - malunion Interval history: POD#3 - *Malunion Patient was seen this morning, doing well without complaints. Alexander catheter in place. Afebrile, vital signs stable. Operative extremity: Neurovascularly intact Dressing clean dry and intact, no saturation. [place] in place. Calf nontender Assessment and plan: Continue with postoperative care, patient plan to go ECF once authorized and cleared from medical team Hematocrit 28.9 Hgb 10 - asymptomatic Objective Vital signs: Vital Signs Temp Pulse Resp BP Pulse Ox 02/12/18 11:14 15 95 02/12/18 10:50 98.6 F 109 15 102/69 95 02/12/18 09:05 111/75 02/12/18 07:03 98.7 F 108 18 126/84 91 02/12/18 05:45 99.1 F 105 18 102/67 94 02/12/18 03:29 20 90 02/12/18 03:15 99.5 F 116 18 98/59 93 02/11/18 23:48 98.9 F 119 16 103/66 93 02/11/18 21:48 17 96 02/11/18 20:26 99.0 F 105 16 110/71 97 02/11/18 18:31 98.8 F 114 16 96/57 95 02/11/18 15:58 18 94 02/11/18 12:21 130 Intake and Output 02/11/18 02/12/18 02/12/18 23:59 07:59 15:59 Intake Total 350 / 350 250 / 250 360 / 360 Output Total 1200 / 1200 425 / 425 Balance -850 / -850 -175 / -175 360 / 360 Intake: IV Fluids 250 / 250 0.9 % Sodium Chloride 250 ML @ 250 / 250 25 mls/hr IVC .Q10H SUSIE Rx#: [id number] Oral 350 / 350 360 / 360 Output: Urine 0 / 0 Catheter 1200 / 1200 425 / 425 Other: Meal Dinner Breakfast Percent of Meal Consumed 50% 75% Stool Size Large Stool Consistency formed Stool Characteristics Normal for Patient Stool Color Brown # Bowel Movements 1 Incision: clean and dry - Labs CBC & BMP: 02/12/18 01:01 02/12/18 01:01 Labs: Abnormal lab results RBC 3.12 M/mcL (3.82-4.97) L 02/12/18 01:01 Hgb 10.0 g/dL (11.5-15.4) L 02/12/18 01:01 Hct 28.9 % (35.3-44.9) L 02/12/18 01:01 RDW 15.0 % (11.5-14.5) H 02/12/18 01:01 Plt Count 126 K/mcL (140-400) L 02/12/18 01:01 Nucleated RBCs/100 WBC 0.2 /100 WBC (0) H 02/12/18 01:01 PT 23.6 Seconds (9.4-12.1) H 02/12/18 01:01 Chloride 109 mEq/L (98-107) H 02/12/18 01:01 BUN/Creatinine Ratio 28 (6-26) H 02/12/18 01:01 Glucose 139 mg/dL (70-105) H 02/12/18 01:01 POC Glucose 194 mg/dL (70-99) H 02/10/18 16:05 Calcium 8.0 mg/dL (8.6-10.3) L 02/12/18 01:01 Iron 27 mcg/dL (50-170) L 02/11/18 18:37 % Saturation 10 % (15-50) L 02/11/18 18:37 Transferrin 201 mg/dL (203-362) L 02/11/18 18:37 Creatine Kinase 357 Units/L (30-223) H 02/10/18 06:19 Urine Clarity Cloudy (Clear) A 02/10/18 12:12 Ur Specific [place] > 1.030 (1.010-1.025) H 02/10/18 12:12 Urine Ketones Trace mg/dL (Negative) H 02/10/18 12:12 Ur Leukocyte Esterase Moderate (Negative) H 02/10/18 12:12 Urine Microscopic WBC 30-50 per hpf (0-3) H 02/10/18 12:12 Ur Squamous Epith Cells Many per lpf (None-Few) H 02/10/18 12:12 Ur Culture Indicated? NO. (NO) A 02/10/18 12:12 Stool Occult Blood Positive (Negative) A 02/10/18 22:35 - VTE Documentation of Mechanical Device: Venous foot pump, device Consult Discharge Plan - Plan Instructions: Total Hip Replacement (DC) Referrals: Shannon Posadas [Primary Care Provider] -
--- NOTE | 2018-02-12 13:56 | Event Note ---
Date of Encounter: 02/12/18 Time of Encounter: 12:50 PCR- POD#3 R THR robotic 02/08/18 Zeferino PCR - Patient seen at bedside. Improvement overall no longer on O2. She states she overall is feeling much better. Labwork and medications reviewed. Hypotension resolved Pain control: Adequate Participating in PT. All questions and concerns addressed. Educated on use of incentive spirometer, ambulation, and hydration. Patient educated on post-operative restrictions and care. Addressed: Hypotension and hyperkalemia both resolved - Hospitalist and Nephrology teams on board. Appreciate their recommendations and evaluations. D/C plan: ECF -now medically stable - ok to discharge once auth obtained.
[2018-02-12] MEDS ORDERED: *HR* Warfarin 2.5 MG TABLET PO ONE (18:00)
[2018-02-12] MEDS ORDERED: Furosemide 40 MG TABLET PO SCH (21:00)
--- NOTE | 2018-02-12 23:26 | Nephrology Progress Note ---
Date of Encounter: 02/12/18 Time of Encounter: 12:00 - Assessment and Plan (1) MALLORY (acute kidney injury) Current Visit: Yes Status: Ruled-out SCR normalized at 0.74, GFR >60 after volume repletion Continue to avoid nephrotoxins if possible UOP noted at 3250cc in the past 24hrs which is great UA and sodium consistent with volume depletion urine eosinophil negative CPK slightly elevated and uric acid WNL Will sign off, please reconsult prn (2) Hyperkalemia Current Visit: Yes Status: Resolved resolved Subjective Principal diagnosis: Left THR - 02/10/18 - malunion Interval history: Pt seen and examined feeling better overall. Objective - Vital Signs Vital signs: Vital Signs Temp Pulse Resp BP Pulse Ox 02/12/18 23:15 98.4 F 119 20 103/68 93 02/12/18 22:30 16 93 02/12/18 18:53 98.3 F 109 18 110/75 95 02/12/18 16:08 16 95 02/12/18 15:43 98.2 F 108 16 106/68 96 02/12/18 11:14 15 95 02/12/18 10:50 98.6 F 109 15 102/69 95 02/12/18 09:05 111/75 02/12/18 07:03 98.7 F 108 18 126/84 91 02/12/18 05:45 99.1 F 105 18 102/67 94 02/12/18 03:29 20 90 02/12/18 03:15 99.5 F 116 18 98/59 93 02/11/18 23:48 98.9 F 119 16 103/66 93 Intake and Output 02/12/18 02/12/18 02/12/18 07:59 15:59 23:59 Intake Total 250 / 250 360 / 360 710 / 710 Output Total 425 / 425 1600 / 1600 600 / 600 Balance -175 / -175 -1240 / -1240 110 / 110 Intake: IV Fluids 250 / 250 0.9 % Sodium Chloride 250 ML @ 250 / 250 25 mls/hr IVC .Q10H SUSIE Rx#: [id number] Oral 360 / 360 710 / 710 Output: Urine 200 / 200 Catheter 425 / 425 1600 / 1600 400 / 400 Other: Meal Breakfast Dinner Percent of Meal Consumed 75% 100% Stool Size Moderate Stool Consistency formed Stool Color Brown # Voids 1 # Bowel Movements 1 - General Appearance General appearance: Present: well-developed, well-nourished EENT: Present: ATNC, mucous membranes moist Neck: Present: no JVD, supple Respiratory: Present: clear Cardiology: Present: no edema, normal S1, normal S2 Gastrointestinal: Present: no tenderness, no guarding Integumentary: Present: warm and dry Neurologic: Present: no focal deficit Psychiatric: Present: mood/affect appropriate - Lab 02/12/18 01:01 02/12/18 01:01 Most recent lab results Calcium 8.0 mg/dL (8.6-10.3) L 02/12/18 01:01 Urine Creatinine 167 mg/dL 02/10/18 12:12 Urine Sodium 14.6 mEq/L 02/10/18 12:12 - VTE Documentation of Mechanical Device: Venous foot pump, device Consult Discharge Plan - Plan Instructions: Total Hip Replacement (DC) Referrals: Shannon Posadas [Primary Care Provider] -
[2018-02-13] MEDS ORDERED: *HR* Digoxin 0.5 MG/2 ML AMPUL IVP ONE (01:18)
[2018-02-13] MEDS ORDERED: 0.9 % Sodium Chloride 1,000 ML IVC ONE (01:18)
[2018-02-13] MEDS: Levalbuterol Neb 1.25 MG/3 ML IH SCH ×2 (04:22→10:11)
[2018-02-13 06:02] LABS: INR 1.8; Prothrombin Time 19.3 Seconds (9.4-12.1)
[2018-02-13] MEDS: 0.9 % Sodium Chloride 250 ML IVC SCH ×2 (06:10→07:36)
[2018-02-13] MEDS: Pantoprazole 40 MG VIAL IVP SCH (06:20)
[2018-02-13] MEDS: Multivit/Ca/Min/Fe/FA 1 TAB TABLET PO SCH (08:26)
[2018-02-13] MEDS: Verapamil ER (24 HR) 240 MG TABLET.ER PO SCH (08:26)
--- NOTE | 2018-02-13 08:26 | Orthopedics Progress Note ---
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 Visit: Yes Status: Chronic Qualifiers: Fracture type: closed Laterality: left Qualified Code(s): S72.002P - Fracture of unspecified part of neck of left femur, subsequent encounter for closed fracture with malunion (2) Obesity (BMI 35.0-39.9 without comorbidity) Current Visit: Yes Status: Chronic (3) Status post total hip replacement, right Current Visit: Yes Status: Acute (4) Arthritis of right hip Current Visit: No Status: Chronic (5) Atrial fibrillation Current Visit: Yes Status: Chronic Qualifiers: Atrial fibrillation type: unspecified Qualified Code(s): I48.91 - Unspecified atrial fibrillation (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 Current Visit: No Status: Chronic (7) HLD (hyperlipidemia) Current Visit: Yes Status: Chronic Qualifiers: Hyperlipidemia type: unspecified Qualified Code(s): E78.5 - Hyperlipidemia , unspecified (8) HTN (hypertension) Current Visit: Yes Status: Chronic Qualifiers: Hypertension type: unspecified Qualified Code(s): I10 - Essential (primary ) hypertension (9) Asthma Current Visit: Yes Status: Chronic Qualifiers: Asthma severity: unspecified severity Asthma persistence: unspecified Asthma complication type: unspecified Qualified Code(s): J45.909 - Unspecified asthma, uncomplicated (10) H/O mechanical aortic valve replacement Current Visit: Yes Status: Chronic (11) Anemia requiring transfusions Current Visit: Yes Status: Acute (12) Symptomatic hypotension Current Visit: Yes Status: Resolved (13) Acute kidney injury Current Visit: Yes Status: Resolved Subjective Principal diagnosis: Left THR - 02/10/18 - malunion Interval history: Patient was seen this morning doing well without complaints. Afebrile vital signs stable. Operative extremity: Neurovascularly intact bloody drainage and intact Calves nontender Assessment and plan: Continue with postoperative care Discharged today. Objective Vital signs: Vital Signs Temp Pulse Resp BP Pulse Ox 02/13/18 07:24 98.2 F 73 16 118/73 95 02/13/18 04:22 16 95 02/13/18 03:19 98.9 F 104 18 102/69 95 02/13/18 01:04 99.4 F 123 16 96/47 94 02/12/18 23:15 98.4 F 119 20 103/68 93 02/12/18 22:30 16 93 02/12/18 18:53 98.3 F 109 18 110/75 95 02/12/18 16:08 16 95 02/12/18 15:43 98.2 F 108 16 106/68 96 02/12/18 11:14 15 95 02/12/18 10:50 98.6 F 109 15 102/69 95 02/12/18 09:05 111/75 Intake and Output 02/12/18 02/13/18 02/13/18 23:59 07:59 15:59 Intake Total 710 / 710 1000 / 1000 Output Total 600 / 600 350 / 350 Balance 110 / 110 650 / 650 Intake: IV Fluids 1000 / 1000 0.9 % Sodium Chloride 1,000 ML 1000 / 1000 @ 3750 mls/hr IVC .Q16M ONE Rx# :[id number] Oral 710 / 710 0 / 0 Output: Urine 200 / 200 350 / 350 Catheter 400 / 400 Other: Meal Dinner Percent of Meal Consumed 100% Stool Size Moderate Stool Consistency formed Stool Color Brown # Voids 1 1 # Bowel Movements 1 - Labs CBC & BMP: 02/12/18 01:01 02/12/18 01:01 Labs: Abnormal lab results RBC 3.12 M/mcL (3.82-4.97) L 02/12/18 01:01 Hgb 10.0 g/dL (11.5-15.4) L 02/12/18 01:01 Hct 28.9 % (35.3-44.9) L 02/12/18 01:01 RDW 15.0 % (11.5-14.5) H 02/12/18 01:01 Plt Count 126 K/mcL (140-400) L 02/12/18 01:01 Nucleated RBCs/100 WBC 0.2 /100 WBC (0) H 02/12/18 01:01 PT 19.3 Seconds (9.4-12.1) H 02/13/18 05:05 Chloride 109 mEq/L (98-107) H 02/12/18 01:01 BUN/Creatinine Ratio 28 (6-26) H 02/12/18 01:01 Glucose 139 mg/dL (70-105) H 02/12/18 01:01 POC Glucose 194 mg/dL (70-99) H 02/10/18 16:05 Calcium 8.0 mg/dL (8.6-10.3) L 02/12/18 01:01 Iron 27 mcg/dL (50-170) L 02/11/18 18:37 % Saturation 10 % (15-50) L 02/11/18 18:37 Transferrin 201 mg/dL (203-362) L 02/11/18 18:37 Creatine Kinase 357 Units/L (30-223) H 02/10/18 06:19 Urine Clarity Cloudy (Clear) A 02/10/18 12:12 Ur Specific [place] > 1.030 (1.010-1.025) H 02/10/18 12:12 Urine Ketones Trace mg/dL (Negative) H 02/10/18 12:12 Ur Leukocyte Esterase Moderate (Negative) H 02/10/18 12:12 Urine Microscopic WBC 30-50 per hpf (0-3) H 02/10/18 12:12 Ur Squamous Epith Cells Many per lpf (None-Few) H 02/10/18 12:12 Ur Culture Indicated? NO. (NO) A 02/10/18 12:12 Stool Occult Blood Positive (Negative) A 02/10/18 22:35 - VTE Documentation of Mechanical Device: Venous foot pump, device Consult Discharge Plan - Plan Instructions: Total Hip Replacement (DC) Referrals: Shannon Posadas [Primary Care Provider] -
[2018-02-13] MEDS: Furosemide 40 MG TABLET PO SCH ×2 (08:27→08:32)
[2018-02-13] MEDS: *HR* Amiodarone 200 MG TABLET PO SCH (08:27)
[2018-02-13] MEDS: Ascorbic Acid 500 MG TABLET PO SCH (08:27)
[2018-02-13] MEDS: Isosorbide MONOnitrate (24 HR) 30 MG TAB.ER.24H PO SCH (08:27)
[2018-02-13] MEDS: *HR* OxyCODONE Immed Rel 5 MG TABLET PO PRN (09:07)
[2018-02-13 10:16] VITALS: BP 131/82
--- NOTE | 2018-02-13 12:14 | Event Note ---
Date of Encounter: 02/13/18 Time of Encounter: 12:00 PCR- POD#4 L THR robotic 02/08/18 Zeferino PCR - Patient seen at bedside. Improvement overall no longer on O2. She states she overall is feeling much better. Patient seen this morning as well for drainage- incision cleansed and appx 10 thalia placed in both incisions. Cleansed again and Honeycomb applied. Wounds reinspected at this time - continued serous drainage though slowed in appearance. Will switch to pressure dressings changed every 8 hours with cleansing at each dressing change until follow up appt. Labwork and medications reviewed. Hypotension resolved Pain control: Adequate Participating in PT. All questions and concerns addressed. Educated on use of incentive spirometer, ambulation, and hydration. Patient educated on post-operative restrictions and care. Addressed: Hypotension and hyperkalemia both resolved - Hospitalist and Nephrology teams on board. Appreciate their recommendations and evaluations. Both have now signed off deeming patient medically stable. Patient with ongoing left knee pain since surgery - obtaining xray to confirm stable knee prior to discharge. D/C plan: ECF -now medically stable - ok to discharge today after xray review..
--- NOTE | 2018-02-13 14:59 | Electrocardiograph Report ---
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
[2018-02-13] MEDS ORDERED: *HR* Warfarin 2.5 MG TABLET PO ONE (18:00)
== END 2018-02-13 14:15 | DRG 470 ==
LOC: SAMDAY 07:21 → 3NENU 13:24
PROVIDERS: ADMIT Orthopaedic Surgery; ATTEND Orthopaedic Surgery